=== PATIENT | male | born 1960 | race Caucasian/White ===

== ENCOUNTER 2019-05-28 20:16 | Emergency (ER) | payer MEDICARE, MEDICAID, SELFPAY ==
[2019-05-28] VITALS (9 sets, daily range): BP systolic 124–146; BP diastolic 60–81; PULSE 80–96; RESP 14–20; TEMP 37.3–37.4; O2SAT 99–100
--- NOTE | ~2019-05-28 | CT_ITS ---
EXAMINATION: CT UE LT w con EXAM DATE: 05/28/2019 22:04 INDICATION: Left upper extremity swelling, elevated white blood cell count, clinical concern for ne crotizing fasciitis. TECHNIQUE: Spiral CT left forearm and hand was performed following intravenous injection of 100 mL Om nipaque 350. Axial, coronal and sagittal images were reviewed. The dose-length product (DLP) for th is examination was 990.03 mGy-cm. The exposure was tailored according to patient size (auto mA expos ure control), and iterative reconstruction (ASIR) was used as additional dose reduction technique. T here is no prior study for comparison. FINDINGS: There is severe edema over the posterior aspect of the left forearm, wrist and hand, withou t an organized fluid collection to suggest focal abscess. There is no gas to suggest necrotizing fasc iitis. The arteries and veins enhance normally, no venous thrombosis. No radiopaque foreign bodies id entified. There are no bony erosions identified. IMPRESSION: Severe posterior soft tissue swelling without abscess, subcutaneous gas or venous thromb osis. Reviewed, dictated and finalized at location A. IMPRESSION: Severe posterior soft tissue swelling without abscess, subcutaneou s gas or venous thrombosis.
[2019-05-28] MEDS: MORPHINE SULFATE 4 MG/ML INJ IV PUSH ×2 (20:48→21:28)
[2019-05-28] MEDS: ONDANSETRON INJ 4 MG/2 ML VIAL IV PUSH (20:49)
[2019-05-28] MEDS: SODIUM CHLORIDE 0.9% IV 1,000 ML 500 ML IV CONT (20:55)
[2019-05-28 21:06] LABS: Basophils Absolute Auto 0.05 K/mm3 (0.00-0.10); Basophils Percent Auto 0.4 % (0.0-1.0); Eosinophils Absolute Auto 0.29 K/mm3 (0.02-0.50); Eosinophils Percent Auto 2.1 % (1.0-6.0); Hematocrit 41.9 % (40.0-54.0); Immature Granulocyte Absolute 0.06 K/mm3 (0.00-0.00); Immature Granulocyte Percent A 0.4 % (0.0-0.0); Lymphocytes Absolute Auto 0.23 K/mm3 (1.10-4.50); Lymphocytes Percent Auto 1.6 % (18.0-42.0); Mean Corpuscular HGB Conc 33.4 g/dL (32.0-36.0); Mean Corpuscular Hemoglobin 28.8 pg (27.0-31.0); Mean Corpuscular Volume 86.2 fL (78.0-102.0); Mean Platelet Volume 9.7 fl (8.7-11.0); Monocytes Absolute Auto 0.74 K/mm3 (0.10-0.90); Monocytes Percent Auto 5.3 % (2.0-11.0); Neutrophils Absolute Auto 12.6 K/mm3 (1.7-7.2); Neutrophils Percent Auto 90.2 % (50.0-70.0); Platelet Count Result 204 K/mm3 (150-420); Red Blood Count 4.86 M/mm3 (4.70-6.10); Red Cell Distribution Width 14.6 % (11.6-14.4)
[2019-05-28 21:20] LABS: INR 1.1; Prothrombin Time 11.7 Seconds (9.64-11.0)
[2019-05-28 21:27] LABS: Lactic Acid 5.1 mmol/L (0.4-2.0)
[2019-05-28 21:31] LABS: Alanine Aminotransferase 18 U/L (16-63); Albumin Level 3.4 g/dL (3.4-5.0); Alkaline Phosphatase 68 U/L (46-116); Aspartate Amino Transferase 25 U/L (15-37); Bilirubin,Total 0.7 mg/dL (0.00-1.00); Blood Urea Nitrogen 17 mg/dL (7-18); Calcium 8.1 mg/dL (8.5-10.1); Carbon Dioxide 23 mmol/L (21-32); Chloride 101 mmol/L (98-108); Estimated CRCL calculation 38 ml/min; Estimated Glomerular Filt Rate 37; Glucose 154 mg/dL (70-99); Osmolality Calculated 290 mOsm/kg (285-295); Sodium 138 mmol/L (136-145); Total Protein 6.7 g/dL (6.4-8.2)
[2019-05-28 21:32] LABS: CRP 12.7 mg/dL (0.0-0.9); Creatine Kinase 522 U/L (39-308)
--- NOTE | 2019-05-28 22:09 | ED.EXTPRO ---
HPI - Extremity Problem General Chief complaint: Nausea/Vomiting/Diarrhea Stated complaint: swollen arm,n Source: patient Mode of arrival: wheelchair Limitations: no limitations History of Present Illness HPI Narrative: 59 y.o. male with no medical problems developed a sore on his left forearm yesterday. Since then his arm and hand has become swollen with development of draining vesicles and intense, constant sharp pain. This is made worse with finger and wrist movement. Nothing makes it better. He's had chills, dry heaves and diarrhea all day today. Hx of MRSA infection over 4 years ago. Related Data Home Medications Medication Instructions Recorded Confirmed No Home Medications 05/28/19 05/28/19 Allergies Allergy/AdvReac Type Severity Reaction Status Date / Time No Known Allergies Allergy Verified 05/28/19 20:28 Review of Systems Constitutional: Constitutional: Reports no additional constitutional complaints Eyes: Eyes: Reports photophobia ENT: Denies dizziness Cardiovascular: Cardiovascular: Denies chest pain Respiratory: Respiratory: Denies dyspnea Gastrointestinal: Gastrointestinal: Reports no additional gastrointestinal complaints Musculoskeletal: Musculoskeletal: Reports no additional musculoskeletal complaints Comments: no rash or sores elsewhere Integumentary/Breasts: Skin/Breast: Reports system reviewed and no additional complaints, except as docu and Denies pruritus Neurologic: Reports headache(s) Comments: headache since yesterday Hematologic/Lymphatic: Hematologic/Lymphatic: Denies easy bruising PMFSH Surgical History Surgical History (Updated 05/29/19 @ 04:51 by Carlos Dennis MD) History of lumbar surgery Social History Social History (Updated 05/29/19 @ 04:52 by Carlos Dennis MD) Smoking packs per day: 2 Smoking cigarettes per day: 40.0 Years smoked: 43 Smoking pack-years: 86.00 Substance use: current Substance use type: marijuana Last use: daily use Living arrangements: with family Exam Narrative: Exam Narrative: Wretching with dry heaves as being wheeled into his room. Appears in a lot of pain. Const: General: alert Orientation/consciousness: patient oriented x3 Limitations: No altered mental status HENMT: Mouth: Yes Normal oral and palatal mucosa present Eyes: Conjunctivae: conjunctivae normal Neck: Neck: no lymphadenopathy Resp: Auscultation: clear to auscultation bilaterally Cardio: Rate: regular rate Rhythm: regular rhythm GI: GI Palp: Yes Soft to palpation Back/Spine/Pelvis: Thoracic/Lumbar Spine: Thoracic/lumbar spine scar(s) Skin: General skin exam: no rashes or lesions noted (other than on left arm), no crusts, no excoriation(s) and other (Left ant. forerm red with many 1 cm superficial ulcers with otero bases.) Extrem: Left upper extremity: normal capillary refill and edema (lower 1/4 of upper arm extending down to hand. Very tender); ROM limited (wrist flexion and extension limited to several degrees. Closes fist 1/2 way) Course Course Emergency Course: Rapid onset and progression, severe pain, leukocytosis, elevated CK, CRP, with severe soft tissue swelling in posterior arm concerning for necrotizing fasciitis. Pt given IV antiobiotics and 2 liters of saline followed by LR drip. Some pain control with 8 mg morphine + 1 mg dilaudid. Vital Signs Vital signs: Vital Signs Temperature 37.4 C 05/28/19 20:29 Pulse Rate 80 05/28/19 20:29 Respiratory Rate 20 05/28/19 20:29 Blood Pressure 135/81 05/28/19 20:29 Pulse Oximetry 99 05/28/19 20:29 Temperature 37.3 C 05/28/19 23:51 Pulse Rate 88 05/28/19 23:51 Respiratory Rate 14 05/28/19 23:51 Blood Pressure 143/78 H 05/28/19 23:51 Pulse Oximetry 100 05/28/19 23:51 Transfer Transfered to: Other ([facility]) Transportation: [facility] Accepting physician: Dr.. Bauer. Possible need for emergent fasciotomy MDM - Extremity (Nontra
--- NOTE | 2019-05-28 22:18 | PC.NURSE ---
RN CONTACTED ANNI AT [facility] FOR TRANSFER AT 2039
--- NOTE | 2019-05-28 22:29 | PC.NURSE ---
Dr. Ott contacted [facility] at this time. States the patient would need to be transferred to [facility] ED by ambulance. Awaiting [place] to contact with [facility] [facility] physician on the line.
[2019-05-28] MEDS: SODIUM CHLORIDE 0.9% IV 1,000 ML 999 ML IV CONT (22:43)
[2019-05-28] MEDS: HYDROMORPHONE HCL 2 MG/ML VIAL 1 MG IV PUSH (22:43)
[2019-05-28] MEDS: PROMETHAZINE HCL 25 MG/ML AMPUL IM (22:48)
--- NOTE | 2019-05-28 23:05 | PC.NURSE ---
TELEPHONE REPORT PROVIDED TO RAEANN HUTTON. PT TO BE TAK[place] [facility]. [facility] CONTACTED FOR TRANSFER.
[2019-05-28] MEDS: LACTATED RINGERS 1,000 ML 150 ML IV CONT (23:49)
== END 2019-05-28 23:53 | disposition short-term general hospital (02) ==
PROVIDERS: Emergency Provider Family Medicine; PCP Internal Medicine
DX: L03.114 Cellulitis of left upper limb (principal); M79.602 Pain in left arm
CPT/HCPCS: 36415; 73201; 80053; 82550; 83605; 85025; 85610; 85730; 86140; 87040; 87070; 87077; 87186; 87205; 96361; 96365; 96367; 96372; 96375; 99284; 99285; J1170; J2270; J2405; J2543; J2550; J3370; J7030; J7120; Q9965

== ENCOUNTER 2019-08-02 11:50 | Outpatient (CLI) | payer MEDICARE, MEDICAID, SELFPAY ==
--- NOTE | ~2019-08-02 | XR_ITS ---
EXAMINATION: XR foot RT min 3V DATE: 08/02/2019 12:21 INDICATION: Right foot injury. TECHNIQUE: 4 views of right foot were obtained. COMPARISON: None. FINDINGS: Bone alignment is normal. There is an oblique fracture of neck of second metatarsal. The di stal fracture fragment demonstrates one cortical width plantar percent displacement. There is mild os teoarthritis of first metatarsophalangeal joint. IMPRESSION: 1. Oblique fracture of neck of second metatarsal. Reviewed, dictated and finalized at location A.
--- NOTE | ~2019-08-02 | XR_ITS ---
EXAMINATION: XR ankle RT min 3V DATE: 08/02/2019 12:21 INDICATION: Right ankle injury. TECHNIQUE: 4 views of right ankle were obtained. COMPARISON: None. FINDINGS: Bone alignment is normal. No fracture. Joint spaces are well maintained. There is ankle sof t tissue swelling. IMPRESSION: 1. No fracture. Reviewed, dictated and finalized at location A. IMPRESSION: 1. No fracture.
== END 2019-08-02 11:51 | disposition home or self-care (01) ==
PROVIDERS: PCP Internal Medicine; Visit Provider Internal Medicine
DX: S92.321A Displaced fracture of second metatarsal bone, right foot, initial encounter for closed fracture (principal)
CPT/HCPCS: 73610; 73630

== ENCOUNTER 2019-08-12 09:58 | Outpatient (RCR) | payer MEDICARE, MEDICAID, SELFPAY ==
--- NOTE | 2019-08-12 11:17 | OTOPEVAL ---
Thank you for referring Hussein Livingston to [facility]. Please review, sign, date and return this plan of care GUERLINE. I agree with and certify that the following plan of care is medically necessary. Referring Physician Date Admitting Provider: Attending Provider: PHYSICIAN NOT ON STAFF Referring Provider: *OT Outpatient Evaluation Start: 08/12/19 10:13 Freq: Status: Active Protocol: Document 08/12/19 10:14 [facility] [place]Rec[place] 08/12/19 11:16 [id number] Therapy Assessment Status Assessment Status Assessment Status Evaluation Outpatient Past Medical History Musculoskeletal History Hx Back Pain Yes Hx Spinal Surgery Yes Evaluation Information Problem Diagnosis Decreased ROM & decreased strength Onset 05/28/19 Cause necrotizing fasciitis Subjective Information Patient reports that he was Query Text:As Reported By Patient/ working on a [employer] member other ranks and Family injured (punctured) his L forearm on 05/28/19. Patient reports his arm began swelling and he was transferred to [place] where he does not remember anything for 3 days. Patient was hospitalized for 10 days. Patient reports multiple surgeries for skin grafts and wound vac. Since patient has been home he reports he has been doing what he is supposed to be. 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 Patient reports that he is currently able to perform self care tasks independently. Quick DASH score: 54.5% Diagnostic Tests X-Rays For This Problem Yes Prior Level of Function Activity Level (Last 3 Months) Hand Dominance Right Activity of Daily Living Ability Independent Indoor/Home Mobility Independent Community Mobility Independent Stairs Ability Independent Functional Cognition (Planning, Shopping Independent , Taking Medications) Cooking Yes Cleaning Yes Laundry Yes Shopping
== END 2019-09-10 14:09 | disposition home or self-care (01) ==
LOC: CHSOT 09:58
PROVIDERS: PCP Internal Medicine
DX: M72.6 Necrotizing fasciitis (principal)
CPT/HCPCS: 97110; 97165

== ENCOUNTER 2019-09-02 13:56 | Outpatient (CLI) | payer MEDICARE, MEDICAID, SELFPAY ==
--- NOTE | ~2019-09-02 | XR_ITS ---
XR foot RT min 3V DATE: 09/02/2019 14:18 INDICATION: Fracture follow-up TECHNIQUE: 4 views COMPARISON: 08/02/2019 right foot FINDINGS: There is no significant change in position or alignment at the minimally anterolaterally di splaced oblique fracture of the neck of the second metatarsal bone. There is periosteal new bone form ation/callus at the fracture site compatible with healing IMPRESSION: Healing fracture of the neck of the second metatarsal bone Reviewed, dictated and finalized at location B.
== END 2019-09-02 13:57 | disposition home or self-care (01) ==
LOC: CHSIMG 13:57
PROVIDERS: PCP Internal Medicine; Visit Provider Internal Medicine
DX: S92.321D Displaced fracture of second metatarsal bone, right foot, subsequent encounter for fracture with routine healing (principal)
CPT/HCPCS: 73630

== ENCOUNTER 2019-10-18 14:09 | Inpatient (IN) | payer MEDICARE, MEDICAID, SELFPAY ==
[2019-10-18] VITALS (7 sets, daily range): BP systolic 133–178; BP diastolic 65–81; PULSE 65–81; RESP 16–20; TEMP 36.4–37.2; O2SAT 96–97; BMI 22.7
--- NOTE | ~2019-10-18 | XR_ITS ---
EXAMINATION: XR abdomen/kub 1V INDICATION: Left ureteral stone TECHNIQUE: Supine views of the abdomen were obtained on 2 radiographs. COMPARISON: CT, 10/18/2019 FINDINGS: A 5 mm calcification projects in the left pelvis, likely reflecting slight interval distal migration of the previously described left ureteral stone. The bowel gas pattern is normal. Surgical changes are noted in the upper abdomen. There is severe lumbar spondylosis. IMPRESSION: 1. 5 mm calcification of the left pelvis likely reflecting interval distal migration of the previousl y described left ureteral stone. Reviewed, dictated and finalized at location A. IMPRESSION: 1. 5 mm calcification of the left pelvis likely reflecting interval distal migr ation of the previously described left ureteral stone.
--- NOTE | ~2019-10-18 | CT_ITS ---
EXAMINATION: CT abdomen pelvis wo con DATE: 10/18/2019 14:59 INDICATION: Left flank pain. Nausea and vomiting. TECHNIQUE: Computed tomography (CT) of the abdomen and pelvis was performed without intravenous contr ast. Automated exposure control and iterative reconstruction technique were employed. The dose-length product was 454.78 mGy-cm. COMPARISON: None. FINDINGS: The visualized portions of the lung bases demonstrate emphysema and mild atelectasis. A lawrence cified left lung nodule is consistent with old granulomatous disease. No pleural effusion. The heart size is normal. There are coronary artery calcifications. No pericardial effusion. There are surgical clips around the stomach. There are cysts in the liver measuring up to 3.3 cm. The gallbladder, sple en, pancreas, and adrenal glands are normal. There is mild atrophy of right kidney. There is mild lef t hydronephrosis and proximal hydroureter. There is 3 mm stone in left ureter where it crosses the il iac vessels. There are no dilated loops of bowel. The appendix is normal. There is a supraumbilical v entral hernia containing fat. The prostate is mildly enlarged. There is a small left inguinal hernia containing fat. There are no pathologically enlarged lymph nodes. There is no free intraperitoneal fl uid. There is severe lumbar spondylosis. IMPRESSION: 1. 3 mm stone in mid left ureter with mild left hydronephrosis and proximal hydroureter. 2. Supraumbilical ventral hernia and left inguinal hernia containing fat. 3. Emphysema. Reviewed, dictated and finalized at location A. IMPRESSION: 1. 3 mm stone in mid left ureter with mild left hydronephrosis and proximal hyd roureter. 2. Supraumbilical ventral hernia and left inguinal hernia containing fat. 3. Emphysema.
--- NOTE | ~2019-10-18 | XR_ITS ---
EXAMINATION: XR abdomen/kub 1V INDICATION: Ureteral stone TECHNIQUE: Supine view of the abdomen is obtained. COMPARISON: 10/20/2019 FINDINGS: The previously described left ureteral calculus is not definitely identified. There are pel jovan phleboliths. A 4 mm calcification projects over the left kidney lower pole. Surgical changes are noted near the gastroesophageal junction. There are no dilated loops of bowel. There is severe lumbar spondylosis. IMPRESSION: 1. Previously described left ureteral calculus not definitely identified. 2. 4 mm calcification projecting over the left kidney lower pole, kidney stone versus bowel contents. Reviewed, dictated and finalized at location B.
--- NOTE | ~2019-10-18 | CT_ITS ---
EXAMINATION: CT brain wo con INDICATION: Headache and dizziness COMPARISON: 10/08/2013 TECHNIQUE: Standard unenhanced head CT. The dose-length product (DLP) was 529.67 mGy-cm. The mA was a djusted according to patient size. Iterative reconstruction technique was employed. FINDINGS: There is no intracranial hemorrhage, acute infarction, or abnormal mass lesion. There are o ld lacunar infarcts of the bilateral caudate nuclei. The ventricles are normal. There is no abnormal mass effect or midline shift. The bertrand-white matter differentiation is normal. The basal cisterns are patent. The orbits are normal. There is mild mucosal thickening of the paranasal sinuses. IMPRESSION: 1. Old lacunar infarcts of the bilateral caudate nuclei without acute intracranial abnormality. Reviewed, dictated and finalized at location B. IMPRESSION: 1. Old lacunar infarcts of the bilateral caudate nuclei without acute intracran ial abnormality.
--- NOTE | 2019-10-18 14:34 | ED.NAVMDI ---
HPI - Nausea/Vomiting/Diarrhea General Chief complaint: Nausea/Vomiting/Diarrhea Stated complaint: 59Yo male w/ 2 day h.o recurrent N/V associated w/ left flank pain that started at 11pm last night. Patient states he has been informed he has dumping syndrome in past. Unable to get relief from PO Zofran. Denies Fever Related Data Home Medications Medication Instructions Recorded Confirmed amlodipine 10 mg PO DAILY 10/18/19 10/18/19 diclofenac sodium 75 mg PO BID PRN 10/18/19 10/18/19 famotidine 40 mg PO DAILY 10/18/19 10/18/19 gabapentin 300 mg PO TID 10/18/19 10/18/19 hydrocodone-acetaminophen 5 - 325 tablet PO Q6-8H PRN 10/18/19 10/18/19 linezolid 600 mg PO BID 10/18/19 10/18/19 Allergies Allergy/AdvReac Type Severity Reaction Status Date / Time No Known Allergies Allergy Verified 10/18/19 14:24 Review of Systems Review of Systems: All systems reviewed & are unremarkable except as noted in HPI and below Constitutional: Constitutional: Reports as per HPI, Denies chills, Denies fatigue, Denies fever(s) and Reports weakness Eyes: Eyes: Reports no additional eye complaints ENT: Reports system reviewed and no additional complaints, except as documented Cardiovascular: Cardiovascular: Reports no additional cardiovascular complaints Respiratory: Respiratory: Reports no additional respiratory complaints Gastrointestinal: Gastrointestinal: Reports nausea and Reports vomiting Genitourinary: Comments: Left Flank pain Musculoskeletal: Musculoskeletal: Reports no additional musculoskeletal complaints Neurologic: Reports system reviewed and no additional complaints, except as documented, Reports as per HPI, Denies vertigo, Denies dizziness, Denies syncope, Denies focal weakness and Denies numbness Psychiatric: Psychiatric: Reports no additional psychiatric complaints Endocrine: Endocrine: Reports no additional endocrine complaints Hematologic/Lymphatic: Hematologic/Lymphatic: Reports no additional hematologic/lymphatic complaints Allergic/Immunologic: Allergic/Immunologic: Reports no additional allergic/immunologic complaints [facility] Past Medical History Medical History Cyclical vomiting syndrome Surgical History Surgical History History of lumbar surgery Social History Social History Smoking packs per day: 2 Smoking cigarettes per day: 40.0 Years smoked: 43 Smoking pack-years: 86.00 Substance use: current Substance use type: marijuana Last use: daily use Gender identity (if verbalized by the patient): Male Exam Const: General: no acute distress and alert Orientation/consciousness: patient oriented x3 Limitations: No altered mental status HENMT: Head: normal to inspection Neck: Neck: normal visual inspection Chest: Chest palpation & inspection: normal inspection of the chest Resp: Effort & Inspection: normal respiratory effort Auscultation: clear to auscultation bilaterally Cardio: Rate: regular rate Rhythm: regular rhythm GI: Inspection: non-distended GI Palp: Yes Soft to palpation, No Tenderness to palpation present (GI), No Guarding due to palpation present (GI) and No Rigid due to palpation Percussion: Yes normal to percussion Other: INtractable Nausea : General: Yes CVA tenderness on the left Back/Spine/Pelvis: Back: CVA tenderness Skin: General skin exam: normal color Neuro: General: patient oriented x3, moves all extremities, no meningeal signs, no focal motor deficits and CN's II-XI intact bilaterally Speech: normal speech Extrem: General: normal to inspection Psych: Mental Status: mental status grossly normal Affect: normal affect Attitude: cooperative Course Course Emergency Course: Reviewed w/u with patient. His N/V controlled after IV lorazepam and Zofran. Patient will be admitted fo
[2019-10-18] MEDS: diphenhydrAMINE HCl INJ 50 MG/ML VIAL IV PUSH (14:42)
[2019-10-18] MEDS: SODIUM CHLORIDE 0.9% IV 1,000 ML 999 ML IV CONT (14:42)
[2019-10-18] MEDS: ONDANSETRON INJ 4 MG/2 ML VIAL IV PUSH ×2 (14:44→21:00)
[2019-10-18 14:49] LABS: Basophils Absolute Auto 0.04 K/mm3 (0.00-0.10); Basophils Percent Auto 0.3 % (0.0-1.0); Hematocrit 44.2 % (40.0-54.0); Immature Granulocyte Absolute 0.06 K/mm3 (0.00-0.00); Immature Granulocyte Percent A 0.4 % (0.0-0.0); Lymphocytes Percent Auto 5.8 % (18.0-42.0); Mean Corpuscular HGB Conc 31.7 g/dL (32.0-36.0); Mean Corpuscular Hemoglobin 26.8 pg (27.0-31.0); Mean Corpuscular Volume 84.5 fL (78.0-102.0); Mean Platelet Volume 9.9 fl (8.7-11.0); Monocytes Absolute Auto 0.67 K/mm3 (0.10-0.90); Monocytes Percent Auto 4.3 % (2.0-11.0); Neutrophils Absolute Auto 13.8 K/mm3 (1.7-7.2); Neutrophils Percent Auto 89.2 % (50.0-70.0); Platelet Count Result 269 K/mm3 (150-420); Red Blood Count 5.23 M/mm3 (4.70-6.10); Red Cell Distribution Width 15.6 % (11.6-14.4); White Blood Count 15.5 K/mm3 (4.8-10.8)
[2019-10-18 15:07] LABS: Alanine Aminotransferase 20 U/L (16-63); Albumin Level 4.1 g/dL (3.4-5.0); Alkaline Phosphatase 102 U/L (46-116); Anion Gap 11 mmol/L (8-16); Aspartate Amino Transferase 18 U/L (15-37); Bilirubin,Total 0.5 mg/dL (0.00-1.00); Blood Urea Nitrogen 20 mg/dL (7-18); Carbon Dioxide 24 mmol/L (21-32); Chloride 105 mmol/L (98-108); Estimated CRCL calculation 42 ml/min; Estimated Glomerular Filt Rate 38; Glucose 175 mg/dL (70-99); Lipase 45 U/L (73-393); Osmolality Calculated 296 mOsm/kg (285-295); Potassium 4.3 mmol/L (3.5-5.1); Sodium 140 mmol/L (136-145); Total Protein 7.8 g/dL (6.4-8.2)
[2019-10-18] MEDS: SODIUM CHLORIDE 0.9% IV 100 ML 200 ML (16:10)
[2019-10-18] MEDS: ONDANSETRON INJ 4 MG/2 ML VIAL 25 MG IVPB (16:11)
[2019-10-18] MEDS: DEXTROSE 5%/0.9% SOD CHL 1,000 ML 250 ML IV CONT (16:13)
[2019-10-18] MEDS: TAMSULOSIN HCL 0.4 MG CAPSULE PO (16:26)
--- NOTE | 2019-10-18 16:55 | ADMGEN ---
This patient, Hussein Livingston, was admitted to 2nd Floor Room 209-1. Patient/family oriented to hospital policies and general routines including ID bracelet, bed and alarms, visiting hours, pain management, procedures, bathroom and other care routines, personal items, smoking policy, room service/diet, and visiting hours. Valuables list has been completed. Information on how to activate the Rapid Response Team has been discussed. Patient/Family are encouraged to report perceived risks to care and to ask questions if they do not understand what they are told or what they should do.
--- NOTE | 2019-10-18 18:25 | PC.NURSE ---
Patient sleeping quietly in bed. No distress noted. IV fluids cont. per order. This nurse spoke with about medication list. Changes noted, and made in chart.
--- NOTE | 2019-10-18 19:30 | PC.NURSE ---
pt sleeping, arousable to name, denies any pain or nausea at this time, iv fluids infusing per order
[2019-10-18] MEDS: ASCORBIC ACID 500 MG TABLET PO (20:18)
[2019-10-18] MEDS: HEPARIN SODIUM 5,000 UNITS/ML VIAL 5000 UNITS SUB-Q (20:18)
[2019-10-18] MEDS: SENNOSIDES 8.6 MG TABLET PO (20:18)
[2019-10-18] MEDS: DEXTROSE 5%/LACTATED RINGERS 1,000 ML 100 ML IV CONT (20:46)
--- NOTE | 2019-10-18 20:55 | PC.NURSE ---
pt began having nausea and dry heaves, medication given, voided dark urine, iv fluids running per order
[2019-10-18 21:16] LABS: Add Urine Microscopic? YES; Appearance Urine Clear (Clear); Bilirubin Urine 1+ (Negative); Blood Urine 3+ (Negative); Color Urine Yellow (Yellow); Glucose Urine UA Negative (Negative); Ketones Urine 1+ (Negative); Leukocyte Esterase Ur Negative LEU/UL (Negative); Nitrate Urine Negative (Negative); Protein Urine Trace (Negative); Specific Grav Ur 1.025 (1.010-1.020); Urobilinogen Urine 0.2 mg/dL (0.2-1.0); pH Urine 5.5 (5.0-8.0)
[2019-10-18 21:21] LABS: Bacteria Urine 2+ /hpf; RBC Urine 51-75 /hpf (0-2); Squamous Epithelial Cell Urine Few /hpf (Few)
--- NOTE | 2019-10-18 22:41 | PC.NURSE ---
pt is nauseated again and having dry heaves, charge account identification clerk calling doctor for orders
--- NOTE | 2019-10-18 23:38 | PC.NURSE ---
Dr Desai called and reported Pharmacist is not comfortable with the zofran 25mg order, discontinue that order, and just proceed with the ativan order, pt can also have benadryl to help him sleep and prevent further nausea
[2019-10-19] VITALS: BP 151/73; PULSE 73; RESP 20; TEMP 36.8; O2SAT 99
[2019-10-19] MEDS: diphenhydrAMINE HCl INJ 50 MG/ML VIAL 25 MG IV PUSH ×3 (00:10→17:25)
--- NOTE | 2019-10-19 00:11 | PC.NURSE ---
IV continues 100ml hr. Pt with dry heaves.
[2019-10-19] MEDS: ONDANSETRON INJ 4 MG/2 ML VIAL IV PUSH (03:21)
[2019-10-19] MEDS: MORPHINE SULFATE 2 MG/ML INJ IV PUSH ×2 (04:09→16:28)
--- NOTE | 2019-10-19 04:09 | PC.NURSE ---
IV continues 100ml hr. Pt Has frequwent dry heaves.
--- NOTE | 2019-10-19 04:48 | PC.NURSE ---
Call placed to Dr Desai, reported pt having dry heaves and medication given up to this point, orders received
--- NOTE | 2019-10-19 05:01 | PC.NURSE ---
IV continues 100ml hr D5LR. Pt continues with dry heaves. Remains NPO.
--- NOTE | 2019-10-19 06:00 | ECG_ITS ---
Measurements Intervals [place] Rate: 79 P: 63 W[place]: 132 QRS: 65 QRSD: 102 T: 74 QT: 377 QTc: 434 Interpretive Statements SINUS RHYTHM INCOMPLETE RIGHT BUNDLE BRANCH BLOCK BORDERLINE ECG Electronically Signed On 10-19-2019 15:19:20 CDT by Brian Penn D.O.
[2019-10-19 08:00] VITALS: BP 148/74; PULSE 80; RESP 20; TEMP 37.1; O2SAT 95
--- NOTE | 2019-10-19 08:16 | PM.IMHP ---
H&P: HPI History of Present Illness Date/Time: 10/19/19 08:16 Chief complaint: nause vomiting sweating chills Narrative: Hussein Livingston is a 59 year old male admitted for observation with a history of recurrent N/V associated with left flank pain that started at 11:00 p.m. last night. Patient states he has dumping syndrome in past. Unable to get relief from PO Zofran. Denies Fever Review of Systems Review of Systems: Narrative: Patient says that he has been having intractable vomiting ever since the mid . was in the room during exam she indicated that Compazine worked better than Zofran in the past. They denied keeping a food log to see if there is any correlation with eating drinking followed by the intractable vomiting. Patient admits that he was an alcoholic but he stopped drinking in the early . Patient denies vomiting any blood he does admit that there is a cramping like sensation in his epigastric area prior to onset of vomiting / retching. Patient does state that he does have some left flank pain that is not as bad as it was when he 1st came to the ER. Cardiovascular: Cardiovascular: Denies chest pain, Denies syncope, Denies lightheadedness and Denies dyspnea Respiratory: Respiratory: Denies chest congestion, Denies cough and Denies hemoptysis Gastrointestinal: Gastrointestinal: Reports as per HPI and Reports other (Hx of gastric ulcers with gastric resection. ) Genitourinary: Genitourinary: Denies hematuria, Denies dysuria and Reports flank pain Musculoskeletal: Musculoskeletal: Reports no additional musculoskeletal complaints PMFSH Past Medical History Medical History Cyclical vomiting syndrome Surgical History Surgical History History of lumbar surgery Social History Social History Smoking packs per day: 2 Smoking cigarettes per day: 40.0 Years smoked: 43 Smoking pack-years: 86.00 Smoking status: Current every day smoker Tobacco type: cigarettes Alcohol intake: current Substance use: current Substance use type: marijuana Last use: daily use Gender identity (if verbalized by the patient): Male Sexual Orientation (if Verbalized by the Patient): Straight or Heterosexual Spiritual care concerns: No Meds Home Medications and Allergies Home Medications Medication Instructions Recorded Confirmed Type amlodipine 10 mg PO DAILY 10/18/19 10/18/19 History diclofenac sodium 75 mg PO BID PRN 10/18/19 10/18/19 History famotidine 40 mg PO DAILY 10/18/19 10/18/19 History gabapentin 300 mg PO TID 10/18/19 10/18/19 History hydrocodone-acetaminophen 5 - 325 tablet PO Q6-8H PRN 10/18/19 10/18/19 History linezolid 600 mg PO BID 10/18/19 10/18/19 History Allergies Allergy/AdvReac Type Severity Reaction Status Date / Time No Known Allergies Allergy Verified 10/18/19 14:24 Vital Signs Vital Signs - 24 hr 10/18/19 14:10 10/18/19 15:00 10/18/19 15:02 Temperature 97.7 F Pulse Rate 65 71 69 Respiratory Rate 20 Blood Pressure 178/81 H 165/77 H 170/77 H Pulse Oximetry 96 10/18/19 15:06 10/18/19 15:30 10/18/19 16:33 Temperature 98.5 F 97.6 F Pulse Rate 81 70 78 Respiratory Rate 16 16 Blood Pressure 174/77 H 152/70 H 150/65 H Pulse Oximetry 97 96 10/18/19 16:55 10/19/19 00:00 Temperature 99 F 98.2 F Pulse Rate 74 73 Respiratory Rate 18 20 Blood Pressure 133/70 151/73 H Pulse Oximetry 96 99 Exam Const: General: cooperative, well developed, alert and awake; No comfortable (especially when wretching / dry heaving. ) Chest: Chest palpation & inspection: normal inspection of the chest Resp: Effort & Inspection: normal respiratory effort, able to speak in complete sentences, no cough, no respiratory distress and no retractions Auscultation: clear to auscultation bilaterally Card
[2019-10-19] MEDS: DEXTROSE 5%/LACTATED RINGERS 1,000 ML 100 ML IV CONT ×2 (08:37→18:14)
[2019-10-19] MEDS: FAMOTIDINE 20 MG/2 ML VIAL IV PUSH ×2 (09:48→20:39)
[2019-10-19] MEDS: HEPARIN SODIUM 5,000 UNITS/ML VIAL 5000 UNITS SUB-Q ×2 (09:49→20:39)
--- NOTE | 2019-10-19 10:00 | PC.NURSE ---
WARM BLANKETS PROVIDED PER REQUEST. IVF INFUSING ORDERED. CALL LIGHT IN REACH. AT BEDSIDE. OCCASINAL
[2019-10-19] MEDS: PROCHLORPERAZINE EDISYLATE 10 MG/2 ML VIAL IV PUSH ×2 (10:06→16:31)
[2019-10-19] MEDS: KETOROLAC 15 MG/ML VIAL (*BKC) IV PUSH ×2 (10:06→17:26)
--- NOTE | 2019-10-19 11:37 | PC.NURSE ---
AT BED SIDE. PT REQUESTING MOUTH SWABS FOR DRY MOUTH. PROVIDED. NO FURTHER RETCHING NOTED.
--- NOTE | 2019-10-19 13:34 | PC.NURSE ---
IV TO RIGHT WRIST NOT PATENT, LEAKING AND UNABLE TO FLUSH. SITE D/C'D ATTEMPTED X 2 TO REINSERT IV UNSUCCESSFUL. RN FROM ER CAME UP AND INSERTED A #20 RIGHT FOREARM. PT TOLERATED WELL. CONTINUES TO C/O NAUSEA. 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 WILL MONITOR.
[2019-10-19 15:28] VITALS: BP 161/90; PULSE 96; RESP 18; TEMP 37.2; O2SAT 98
--- NOTE | 2019-10-19 16:32 | PC.NURSE ---
left flank pain and dry heaves noted, morphine given and compazine given for c/o
--- NOTE | 2019-10-19 17:30 | PC.NURSE ---
No change in pain, still having dry heaves at times, feels awful, just wants to feel relief, benadryl IV and toradol given IV for comfort, fluids infusing through new saline lock to right lateral arm, site clear
--- NOTE | 2019-10-19 18:15 | PC.NURSE ---
Asleep, no evidence of pain at this time, fluids infusing, no further dry heaves at this time
[2019-10-19] MEDS: SENNOSIDES 8.6 MG TABLET PO (20:39)
[2019-10-19] MEDS: ASCORBIC ACID 500 MG TABLET PO (20:40)
[2019-10-20] VITALS: BP 160/91; PULSE 52; RESP 14; TEMP 37.4; O2SAT 96
[2019-10-20] MEDS: DEXTROSE 5%/LACTATED RINGERS 1,000 ML 100 ML IV CONT ×3 (03:43→23:40)
[2019-10-20 05:30] LABS: Hematocrit 36.6 % (40.0-54.0); Hemoglobin 11.6 g/dL (14.0-18.0); Mean Corpuscular HGB Conc 31.7 g/dL (32.0-36.0); Mean Corpuscular Hemoglobin 26.5 pg (27.0-31.0); Mean Corpuscular Volume 83.8 fL (78.0-102.0); Mean Platelet Volume 10.6 fl (8.7-11.0); Platelet Count Result 201 K/mm3 (150-420); Red Blood Count 4.37 M/mm3 (4.70-6.10); Red Cell Distribution Width 15.8 % (11.6-14.4); White Blood Count 10.9 K/mm3 (4.8-10.8)
[2019-10-20 05:41] LABS: Anion Gap 11 mmol/L (8-16); Blood Urea Nitrogen 18 mg/dL (7-18); Calcium 8.6 mg/dL (8.5-10.1); Carbon Dioxide 26 mmol/L (21-32); Chloride 109 mmol/L (98-108); Estimated CRCL calculation 52 ml/min; Estimated Glomerular Filt Rate 50; Glucose 151 mg/dL (70-99); Osmolality Calculated 306 mOsm/kg (285-295); Potassium 3.8 mmol/L (3.5-5.1); Sodium 146 mmol/L (136-145)
[2019-10-20 08:00] VITALS: BP 165/91; PULSE 55; RESP 18; TEMP 36; O2SAT 97
[2019-10-20] MEDS: HEPARIN SODIUM 5,000 UNITS/ML VIAL 5000 UNITS SUB-Q ×2 (09:33→20:58)
[2019-10-20] MEDS: chlorproMAZINE HCL 25 MG TABLET PO (09:33)
[2019-10-20] MEDS: TAMSULOSIN HCL 0.4 MG CAPSULE PO (09:33)
[2019-10-20] MEDS: FAMOTIDINE 20 MG/2 ML VIAL IV PUSH ×2 (09:34→20:59)
[2019-10-20] MEDS: diphenhydrAMINE HCl INJ 50 MG/ML VIAL 25 MG IV PUSH (09:35)
[2019-10-20] MEDS: GABAPENTIN 300 MG CAPSULE PO ×2 (09:36→16:52)
[2019-10-20] MEDS: LORATADINE 10 MG TABLET PO (09:36)
--- NOTE | 2019-10-20 12:04 | PM.IMPN ---
Progress Note: A&P Assessment and Plan (1) Cyclical vomiting syndrome: Code(s): R11.15 - Cyclical vomiting syndrome unrelated to migraine Status: Acute Assessment and Plan: Advancing diet to clear liquids Administered IV Benadryl and PO Chlorpromazine and this has helped with the retching to the point PO fluids can be started Compazine as Pt and stated this worked better in the past Femotidine Morphine (2) Dehydration: Code(s): E86.0 - Dehydration Status: Acute Assessment and Plan: D5LR 100 ml/hr will continue until PO fluids can be tolerated Starting PO clear liquid diet Monitor VS and I&Os (3) Left ureteral calculus: Code(s): N20.1 - Calculus of ureter Status: Acute Assessment and Plan: Toradol added for 3 doses, KUB report reads an impression that the stone has advanced lower Flomax Pt states Pain has improved more with Benadryl and PO Chlorpromazine Subjective Date/time seen: 10/20/19 12:04 Patient is complaining of abdominal pain due to retching quite a lot. He states the only thing he is producing just sputum. He did say that the Compazine was working a little better but not by much. After missing chlorpromazine and diphenhydramine patient was able to get some rest and is retching decreased quite a bit and he would really like to have something to drink. Review of Systems Constitutional: Constitutional: Denies headache(s) Cardiovascular: Cardiovascular: Reports no additional cardiovascular complaints, Denies chest pain, Denies chest pain at rest and Denies chest pain with activity Respiratory: Respiratory: Reports no additional respiratory complaints, Denies chest congestion and Denies hemoptysis Gastrointestinal: Gastrointestinal: Reports abdominal pain ( Related to constant retching) Exam Const: General: cooperative, awake and Physically active Nutritional Appearance: average body habitus Resp: Effort & Inspection: normal respiratory effort Auscultation: clear to auscultation bilaterally Cardio: Jugular venous distension: no JVD Rate: regular rate Rhythm: regular rhythm Heart sounds: S1 normal heart sound present and S2 normal heart sound present GI: Inspection: normal to inspection GI Palp: No abdominal tenderness and Yes Soft to palpation Auscultation: normal bowel sounds Neuro: General: oriented to person, oriented to place and oriented to time ( and events) Cranial nerves: Yes Normal hearing present Cognition (Neuro): normal cognition Speech: normal speech Objective Data Vital Signs Vital Signs: Vital Signs - 24 hr 10/19/19 15:28 10/20/19 00:00 10/20/19 08:00 Temperature 99 F 99.3 F 96.8 F L Pulse Rate 96 52 L 55 L Respiratory Rate 18 14 18 Blood Pressure 161/90 H 160/91 H 165/91 H Pulse Oximetry 98 96 97 Intake/Output Intake/Output: Intake & Output 10/17/19 10/18/19 10/19/19 10/20/19 23:59 23:59 23:59 23:59 Intake Total 1999 1999 998.333 Output Total 200 475 450 Balance 1800 1525 548.333 Meds/Results Medications: Active Medications Generic Name Dose Route Start Last Admin Trade Name Freq PRN Reason Stop Dose Admin Acetaminophen 650 mg 10/18/19 16:34 Tylenol Tablet PO Q4H PRN Mild Pain (1-3) or Fever Ascorbic Acid 500 mg 10/18/19 21:00 10/19/19 20:40 Vitamin C PO 500 mg HS DIANDRA Administration Chlorpromazine HCl 25 mg 10/20/19 09:19 10/20/19 09:33 Thorazine Po PO 25 mg Q6HR PRN Administration Vomiting give with benadryl Diphenhydramine HCl 25 mg 10/18/19 18:38 Benadryl Cap PO Q6H PRN Itching Diphenhydramine HCl 25 mg 10/18/19 23:57 10/20/19 09:35 Benadryl Inj IV PUSH 25 mg Q4H PRN Administration Itching Famotidine 20 mg 10/19/19 09:00 10/20/19 09:34 Pepcid Iv IV PUSH 20 mg Q12HR DIANDRA Administration Gabapentin 300 mg 10/19/19 09:00 10/20/19 09:36 Neurontin PO 300 mg BID DIANDRA Administ
[2019-10-20 16:00] VITALS: BP 185/110; PULSE 80; RESP 20; TEMP 37.4; O2SAT 97
[2019-10-20] MEDS: PROCHLORPERAZINE EDISYLATE 10 MG/2 ML VIAL IV PUSH ×2 (16:52→23:41)
[2019-10-20] MEDS: MORPHINE SULFATE 2 MG/ML INJ IV PUSH ×2 (18:05→23:41)
[2019-10-20] MEDS: ASCORBIC ACID 500 MG TABLET PO (20:59)
[2019-10-20] MEDS: KETOROLAC 15 MG/ML VIAL (*BKC) IV PUSH (20:59)
[2019-10-20] MEDS: diphenhydrAMINE HCl CAP 25 MG CAPSULE PO (20:59)
[2019-10-20] MEDS: SENNOSIDES 8.6 MG TABLET PO (20:59)
[2019-10-20 23:46] VITALS: BP 172/98; PULSE 61; RESP 20; TEMP 36.9; O2SAT 94
[2019-10-21] MEDS: diphenhydrAMINE HCl CAP 25 MG CAPSULE PO ×3 (02:58→20:11)
[2019-10-21] MEDS: chlorproMAZINE HCL 25 MG TABLET PO ×2 (02:58→12:17)
[2019-10-21] MEDS: MORPHINE SULFATE 2 MG/ML INJ IV PUSH (03:56)
[2019-10-21 07:38] VITALS: BP 171/96; PULSE 67; RESP 18; TEMP 37.2; O2SAT 98
[2019-10-21 08:29] LABS: Hemoglobin 11.8 g/dL (14.0-18.0); Mean Corpuscular HGB Conc 31.9 g/dL (32.0-36.0); Mean Corpuscular Hemoglobin 26.3 pg (27.0-31.0); Mean Corpuscular Volume 82.4 fL (78.0-102.0); Mean Platelet Volume 11.4 fl (8.7-11.0); Platelet Count Result 206 K/mm3 (150-420); Red Blood Count 4.49 M/mm3 (4.70-6.10); White Blood Count 10.2 K/mm3 (4.8-10.8)
[2019-10-21 08:43] LABS: Alanine Aminotransferase 40 U/L (16-63); Albumin Level 3.2 g/dL (3.4-5.0); Alkaline Phosphatase 73 U/L (46-116); Anion Gap 8 mmol/L (8-16); Aspartate Amino Transferase 52 U/L (15-37); Bilirubin,Total 0.6 mg/dL (0.00-1.00); Blood Urea Nitrogen 9 mg/dL (7-18); Calcium 8.1 mg/dL (8.5-10.1); Carbon Dioxide 29 mmol/L (21-32); Chloride 101 mmol/L (98-108); Estimated CRCL calculation 72 ml/min; Estimated Glomerular Filt Rate > 60; Glucose 119 mg/dL (70-99); Osmolality Calculated 285 mOsm/kg (285-295); Potassium 2.7 mmol/L (3.5-5.1); Sodium 138 mmol/L (136-145); Total Protein 5.9 g/dL (6.4-8.2)
[2019-10-21] MEDS: TAMSULOSIN HCL 0.4 MG CAPSULE PO (09:31)
[2019-10-21] MEDS: GABAPENTIN 300 MG CAPSULE PO ×2 (09:31→16:22)
[2019-10-21] MEDS: LORATADINE 10 MG TABLET PO (09:31)
[2019-10-21] MEDS: amLODIPine BESYLATE 5 MG TABLET 10 MG PO (09:32)
[2019-10-21] MEDS: FAMOTIDINE 20 MG/2 ML VIAL IV PUSH ×2 (09:32→20:11)
[2019-10-21] MEDS: ACETAMINOPHEN 325 MG TABLET 650 MG PO ×2 (09:32→16:21)
[2019-10-21] MEDS: HEPARIN SODIUM 5,000 UNITS/ML VIAL 5000 UNITS SUB-Q ×2 (09:32→20:11)
--- NOTE | 2019-10-21 11:53 | WPDPN ---
Progress Note: A&P Assessment and Plan (1) Cyclical vomiting syndrome: Code(s): R11.15 - Cyclical vomiting syndrome unrelated to migraine Status: Acute Assessment and Plan: Improving Patient able to tolerate clear liquid has advance to bland diet Continue Compazine Patient has not needed any pain medication Continue Pepcid (2) Left ureteral calculus: Code(s): N20.1 - Calculus of ureter Status: Acute Assessment and Plan: Improving, stone appears to be passing Stone has migrated from the left ureteral to the left pelvis (3) Dehydration: Code(s): E86.0 - Dehydration Status: Acute Assessment and Plan: Resolved Secondary to nausea and vomiting IV therapy discontinue patient able to tolerate clear liquid diet (4) H/O resection of stomach: Code(s): Z90.3 - Acquired absence of stomach [part of] Status: Acute Assessment and Plan: Secondary to ulcers Stable (5) 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 HEAD: normocephalic, atraumatic. EYES: PERRL. Sclera clear/white. Vision is grossly intact. EARS: External ears normal, auditory canals clear and without drainage, TMs normal without perforation. Hearing grossly intact. NOSE: External nose normal with no obvious nasal discharge, nares without redness, no rhinorrhea. THROAT: Mucous membranes moist, posterior pharynx clear. NECK: Neck supple, non-tender without lymphadenopathy, masses or thyromegaly. CARDIOVASCULAR: Regular rate and rhythm without murmurs, gallops, or rubs. RESPIRATORY: Clear to auscultation. Breath sounds equal bilaterally. No wheezes, rales, or rhonchi. GASTROINTESTINAL: Abdomen soft, non-tender, nondistended. Bowel sounds are active. No hepato-splenomegaly, or palpable masses. No guarding. SKIN: warm, intact with no suspicious lesions or rash, good texture and turgor. NEURO: awake, alert, and oriented to person, place and time. There were no obvious focal neurologic abnormalities. Steady gait EXTREMITIES: Normal range of motion. No edema. No calf tenderness. Negative Homans sign bilaterally. BACK: Nontender without deformity or crepitance. No flank tenderness. Fawad Coma Scale Eye Opening: Spontaneous 4 Fawad Coma Scale Motor: Obeys Commands 6 Fawad Coma Scale Verbal: Oriented 5 Objective Data Vital Signs Vital Signs: Vital Signs - 24 hr 10/20/19 16:00 10/20/19 23:46 10/21/19 07:38 Temperature 99.4 F 98.4 F 99 F Pulse Rate 80 61 67 Respiratory Rate 20 20 18 Blood Pressure 185/110 H 172/98 H 171/96 H Pulse Oximetry 97 94 98 Intake/Output Intake/Output: Intake & Output 10/18/19 10/19/19 10/20/19 10/21/19 23:59 23:59 23:59 23:59 Intake Total 1999 1999 3278.333 1480 Output Total 518 552 5346 1800 Balance 1800 1525 1428.333 -320 Meds/Results Medications: Active Medications Generic Name Dose Route Start Last Admin Trade Name Freq PRN Reason Stop Dose Admin Acetaminophen 650 mg 10/18/19 16:34 10/21/19 09:32 Tylenol Tablet PO 650 mg Q4H PRN Administration Mild Pain (1-3) or Fever Amlodipine Besylate 10 mg 10/21/19 09:00 10/21/19 09:32 Norvasc PO 10 mg QAM DIANDRA Administration Ascorbic Acid 500 mg 10/18/19 21:00 10/20/19 20:59 Vitamin C PO 500 mg HS DIANDRA Administration Chlorpromazine HCl 25 mg 10/20/19 09:19 10/21/19 02:58 Thorazine Po PO 25 mg Q6HR PRN Administration Vomiting give with benadryl Diphenhydramine HCl 25 mg 10/18/19 18:38 10/21/19 02:58 Benadryl Cap PO 25 mg Q6H PRN Administration Itching
[2019-10-21] MEDS: KETOROLAC 15 MG/ML VIAL (*BKC) IV PUSH (12:19)
[2019-10-21] MEDS: KCL 20 MEQ/SW 100 ML 100 ML 50 MEQ IVPB ×2 (14:19→16:22)
[2019-10-21] MEDS: SODIUM CHLORIDE 0.9% IV 500 ML 250 ML IV CONT (14:19)
[2019-10-21 16:20] VITALS: BP 158/90; PULSE 75; RESP 18; TEMP 36.9; O2SAT 97
[2019-10-21] MEDS: SENNOSIDES 8.6 MG TABLET PO (20:10)
[2019-10-21] MEDS: ASCORBIC ACID 500 MG TABLET PO (20:10)
[2019-10-21] MEDS: traZODone HCL 50 MG TABLET PO (20:12)
--- NOTE | 2019-10-21 20:30 | PCNEURO ---
Patient SO reports drinks [employer] continually at home. Patient reports headache. Gave trazadone and benedryl to promote supply.
[2019-10-22] VITALS: PULSE 71; RESP 18; TEMP 37.2; O2SAT 95
[2019-10-22 01:04] VITALS: BP 163/90
--- NOTE | 2019-10-22 02:00 | PC.NURSE ---
Patient resting. Pain 0 on FLACC
--- NOTE | 2019-10-22 04:00 | PC.NURSE ---
Patient is resting. pain 0 on FLACC.
[2019-10-22] MEDS: diphenhydrAMINE HCl CAP 25 MG CAPSULE PO (05:14)
[2019-10-22] MEDS: ACETAMINOPHEN 325 MG TABLET 650 MG PO (05:14)
[2019-10-22] MEDS: chlorproMAZINE HCL 25 MG TABLET PO (05:14)
--- NOTE | 2019-10-22 05:17 | PC.NURSE ---
Patient c/o headache. PRN tylenol given. Medication given for c/o nausea
[2019-10-22 05:41] LABS: Hematocrit 44.2 % (40.0-54.0); Hemoglobin 14.5 g/dL (14.0-18.0); Mean Corpuscular HGB Conc 32.8 g/dL (32.0-36.0); Mean Corpuscular Hemoglobin 26.2 pg (27.0-31.0); Mean Corpuscular Volume 79.9 fL (78.0-102.0); Mean Platelet Volume 10.9 fl (8.7-11.0); Platelet Count Result 251 K/mm3 (150-420); Red Blood Count 5.53 M/mm3 (4.70-6.10); Red Cell Distribution Width 14.3 % (11.6-14.4); White Blood Count 9.7 K/mm3 (4.8-10.8)
[2019-10-22 05:56] LABS: Alanine Aminotransferase 168 U/L (16-63); Albumin Level 3.7 g/dL (3.4-5.0); Alkaline Phosphatase 99 U/L (46-116); Anion Gap 10 mmol/L (8-16); Aspartate Amino Transferase 127 U/L (15-37); Bilirubin,Total 0.9 mg/dL (0.00-1.00); Blood Urea Nitrogen 9 mg/dL (7-18); Calcium 8.5 mg/dL (8.5-10.1); Carbon Dioxide 29 mmol/L (21-32); Chloride 95 mmol/L (98-108); Estimated CRCL calculation 71 ml/min; Estimated Glomerular Filt Rate > 60; Glucose 120 mg/dL (70-99); Osmolality Calculated 277 mOsm/kg (285-295); Potassium 2.6 mmol/L (3.5-5.1); Sodium 134 mmol/L (136-145); Total Protein 6.9 g/dL (6.4-8.2)
[2019-10-22 07:25] VITALS: BP 195/112; PULSE 70; RESP 18; TEMP 37.2; O2SAT 98
[2019-10-22] MEDS: amLODIPine BESYLATE 5 MG TABLET 10 MG PO (08:01)
[2019-10-22] MEDS: FAMOTIDINE 20 MG/2 ML VIAL IV PUSH ×2 (08:02→21:31)
[2019-10-22] MEDS: hydrALAZINE 5 MG TABLET PO (08:02)
[2019-10-22] MEDS: LORATADINE 10 MG TABLET PO (08:02)
[2019-10-22] MEDS: KCL 20 MEQ/SW 100 ML 100 ML 50 MEQ IVPB ×5 (08:02→20:05)
[2019-10-22] MEDS: GABAPENTIN 300 MG CAPSULE PO ×2 (08:02→17:16)
[2019-10-22] MEDS: TAMSULOSIN HCL 0.4 MG CAPSULE PO (08:02)
[2019-10-22] MEDS: HEPARIN SODIUM 5,000 UNITS/ML VIAL 5000 UNITS SUB-Q ×2 (08:02→21:30)
[2019-10-22] MEDS: SODIUM CHLORIDE 0.9% IV 1,000 ML 150 ML IV CONT (08:03)
[2019-10-22] MEDS: POTASSIUM CHLORIDE 20 MEQ PACKET (FOR LIQUID) 40 MEQ PO (08:10)
[2019-10-22 11:00] VITALS: BP 173/100; PULSE 82; RESP 18; O2SAT 98
--- NOTE | 2019-10-22 11:40 | P.PN_ITS ---
Progress Note: A&P Assessment and Plan (1) Cyclical vomiting syndrome: Code(s): R11.15 - Cyclical vomiting syndrome unrelated to migraine Status: Acute Assessment and Plan: * Unchanged * Patient able to tolerate clear liquid . Patient diet advanced unable to tolerate solids * Continue Compazine added Reglan to his regimen * Continue Pepcid * If patient condition does not improve he will be transferred to [facility] for GI work-up (2) Left ureteral calculus: Code(s): N20.1 - Calculus of ureter Status: Acute Assessment and Plan: * Improving, stone appears to be passing * Stone has migrated from the left ureteral to the left pelvis * Repeat x-ray today unchanged * Strain urine * Liver function tests worsening (3) Dehydration: Code(s): E86.0 - Dehydration Status: Acute Assessment and Plan: * Resolved * Secondary to nausea and vomiting * IV therapy discontinue patient able to tolerate clear liquid diet * Repeat x-ray today unchanged * Strain urine (4) H/O resection of stomach: Code(s): Z90.3 - Acquired absence of stomach [part of] Status: Acute Assessment and Plan: * Secondary to ulcers * Requested medical records from [facility] (5) 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 * We will repeat potassium after noon * Will continue supplement (8) Migraine headache: Code(s): G43.909 - Migraine, unspecified, not intractable, without status migrainosus Status: Acute Assessment and Plan: * Patient has a history of migraine headaches * will bring Excedrin migraine from home * Patient also will get Reglan with Tylenol to improve migraine headache * CT of the head. (9) Complicated wound infection: Code(s): T14.8XXA - Other injury of unspecified body region, initial encounter; L08.9 - Local infection of the skin and subcutaneous tissue, unspecified Status: Acute Assessment and Plan: * According to patient after receiving a puncture wound to his left arm he developed a strep infection. He recently have had a skin graft to the left arm where the wound infection was located and has completed his dose of linezolid * Requested medical records from [facility] Review of Systems Review of Systems: All systems reviewed & are unremarkable except as noted in HPI and below (10 point system review) Exam Narrative: Exam Narrative: GENERAL: This is a well-nourished, well-developed patient, in no apparent distress. HEAD: normocephalic, atraumatic. EYES: PERRL. Sclera clear/white. Vision is grossly intact. EARS: External ears normal, auditory canals clear and without drainage, TMs normal without perforation. Hearing grossly intact. NOSE: External nose normal with no obvious nasal discharge, nares without redness, no rhinorrhea. THROAT: Mucous membranes moist, posterior pharynx clear. NECK: Neck supple, non-tender without lymphadenopathy, masses or thyromegaly. CARDIOVASCULAR: Regular rate and r
--- NOTE | 2019-10-22 11:40 | WPDPN ---
Progress Note: A&P Assessment and Plan (1) Cyclical vomiting syndrome: Code(s): R11.15 - Cyclical vomiting syndrome unrelated to migraine Status: Acute Assessment and Plan: Unchanged Patient able to tolerate clear liquid . Patient diet advanced unable to tolerate solids Continue Compazine added Reglan to his regimen Continue Pepcid If patient condition does not improve he will be transferred to [facility] for GI work-up (2) Left ureteral calculus: Code(s): N20.1 - Calculus of ureter Status: Acute Assessment and Plan: Improving, stone appears to be passing Stone has migrated from the left ureteral to the left pelvis Repeat x-ray today unchanged Strain urine Liver function tests worsening (3) Dehydration: Code(s): E86.0 - Dehydration Status: Acute Assessment and Plan: Resolved Secondary to nausea and vomiting IV therapy discontinue patient able to tolerate clear liquid diet Repeat x-ray today unchanged Strain urine (4) H/O resection of stomach: Code(s): Z90.3 - Acquired absence of stomach [part of] Status: Acute Assessment and Plan: Secondary to ulcers Requested medical records from [facility] (5) 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 We will repeat potassium after noon Will continue supplement (8) Migraine headache: Code(s): G43.909 - Migraine, unspecified, not intractable, without status migrainosus Status: Acute Assessment and Plan: Patient has a history of migraine headaches will bring Excedrin migraine from home Patient also will get Reglan with Tylenol to improve migraine headache CT of the head. (9) Complicated wound infection: Code(s): T14.8XXA - Other injury of unspecified body region, initial encounter; L08.9 - Local infection of the skin and subcutaneous tissue, unspecified Status: Acute Assessment and Plan: According to patient after receiving a puncture wound to his left arm he developed a strep infection. He recently have had a skin graft to the left arm where the wound infection was located and has completed his dose of linezolid Requested medical records from [facility] Review of Systems Review of Systems: All systems reviewed & are unremarkable except as noted in HPI and below (10 point system review) Exam Narrative: Exam Narrative: GENERAL: This is a well-nourished, well-developed patient, in no apparent distress. HEAD: normocephalic, atraumatic. EYES: PERRL. Sclera clear/white. Vision is grossly intact. EARS: External ears normal, auditory canals clear and without drainage, TMs normal without perforation. Hearing grossly intact. NOSE: External nose normal with no obvious nasal discharge, nares without redness, no rhinorrhea. THROAT: Mucous membranes moist, posterior pharynx clear. NECK: Neck supple, non-tender without lymphadenopathy, masses or thyromegaly. CARDIOVASCULAR: Regular rate and rhythm without murmurs, gallops, or rubs. RESPIRATORY: Clear to auscultation. Breath sounds equal bilaterally. No wheezes, rales, or rhonchi. GASTROINTESTINAL: Epigastric tenderness SKIN: warm, intact with no suspicious lesions or rash, good texture and turgor. Skin graft to his left thigh and left upper arm NEURO: awake, alert, and oriented to person, place and time. There were no obvious focal neurologic abnormalities. Steady gait EXTREMITIES: Normal range
[2019-10-22 12:04] LABS: Potassium 2.8 mmol/L (3.5-5.1)
[2019-10-22] MEDS: METOCLOPRAMIDE HCL INJ 10 MG/2 ML VIAL 5 MG IV PUSH ×2 (12:34→17:15)
[2019-10-22] MEDS: BISMUTH SUBSALICYLATE 262 MG CHEWABLE TABLET 524 MG PO (12:36)
[2019-10-22] MEDS: hydrALAZINE HCL 20 MG/ML VIAL 5 MG IV PUSH (12:41)
--- NOTE | 2019-10-22 13:24 | PHAR ---
10/22/19. VERIFIED PT.'S HOME MEDICATION EXCEDRIN MIGRAINE. TLS
--- NOTE | 2019-10-22 14:45 | PC.NURSE ---
Patient reports discomfort at IV site. IV site discontinued. New site obtained on top of right forearm. Patient tolerated well.
[2019-10-22 16:00] VITALS: BP 164/111; PULSE 84; PULSE 85; RESP 18; TEMP 37.4; O2SAT 97
[2019-10-22] MEDS: ACETAMINOPHEN 325 MG TABLET PO (17:15)
[2019-10-22] MEDS: hydrALAZINE 10 MG TABLET 5 MG PO (17:16)
[2019-10-22 18:44] LABS: Anion Gap 7 mmol/L (8-16); Blood Urea Nitrogen 8 mg/dL (7-18); Calcium 8.4 mg/dL (8.5-10.1); Carbon Dioxide 30 mmol/L (21-32); Chloride 95 mmol/L (98-108); Estimated CRCL calculation 75 ml/min; Estimated Glomerular Filt Rate > 60; Glucose 126 mg/dL (70-99); Osmolality Calculated 274 mOsm/kg (285-295); Sodium 132 mmol/L (136-145)
[2019-10-22 20:00] VITALS: PULSE 104
[2019-10-22] MEDS: ASCORBIC ACID 500 MG TABLET PO (21:31)
[2019-10-22] MEDS: SENNOSIDES 8.6 MG TABLET PO (21:32)
[2019-10-22] MEDS: SODIUM CHLORIDE 0.9% IV 250 ML 100 ML IV CONT (22:05)
[2019-10-22] MEDS: traZODone HCL 50 MG TABLET 100 MG PO (22:09)
--- NOTE | 2019-10-22 23:36 | PC.NURSE ---
New IV site started to the right forearm with a #22 gauge catheter. IV fluid infusing as ordered.
[2019-10-23] VITALS: BP 167/99; PULSE 78; RESP 20; TEMP 37.4; O2SAT 96
[2019-10-23] MEDS: METOCLOPRAMIDE HCL INJ 10 MG/2 ML VIAL 5 MG IV PUSH ×2 (00:22→06:19)
[2019-10-23] MEDS: KCL 20 MEQ/SW 100 ML 100 ML 50 MEQ IVPB (00:23)
[2019-10-23] MEDS: SODIUM CHLORIDE 0.9% IV 250 ML 100 ML IV CONT (00:24)
[2019-10-23] MEDS: ACETAMINOPHEN 325 MG TABLET PO ×2 (00:36→06:18)
[2019-10-23 00:41] LABS: Occult Blood Negative (Negative)
[2019-10-23 04:00] VITALS: PULSE 72
--- NOTE | 2019-10-23 04:56 | PM.EVENT ---
Event Note Event Note Event Note: For 10/22/19: I have examined the patient and reviewed the chart. I discussed the patient's care with Lobito ROBBINS and agree with her assessment and plan. If the patient's clinical condition does not significantly improve, he may need more specialized care such as endoscopy and/or GI consult.
[2019-10-23 05:40] LABS: Hematocrit 43.4 % (40.0-54.0); Hemoglobin 14.4 g/dL (14.0-18.0); Mean Corpuscular HGB Conc 33.2 g/dL (32.0-36.0); Mean Corpuscular Hemoglobin 26.9 pg (27.0-31.0); Mean Platelet Volume 10.7 fl (8.7-11.0); Platelet Count Result 255 K/mm3 (150-420); Red Blood Count 5.36 M/mm3 (4.70-6.10); Red Cell Distribution Width 14.3 % (11.6-14.4); White Blood Count 9.6 K/mm3 (4.8-10.8)
[2019-10-23 06:05] LABS: Alanine Aminotransferase 101 U/L (16-63); Albumin Level 3.4 g/dL (3.4-5.0); Alkaline Phosphatase 90 U/L (46-116); Anion Gap 9 mmol/L (8-16); Aspartate Amino Transferase 59 U/L (15-37); Bilirubin,Total 0.8 mg/dL (0.00-1.00); Blood Urea Nitrogen 10 mg/dL (7-18); Calcium 8.5 mg/dL (8.5-10.1); Carbon Dioxide 27 mmol/L (21-32); Chloride 96 mmol/L (98-108); Estimated CRCL calculation 69 ml/min; Estimated Glomerular Filt Rate > 60; Glucose 137 mg/dL (70-99); Osmolality Calculated 275 mOsm/kg (285-295); Potassium 2.8 mmol/L (3.5-5.1); Sodium 132 mmol/L (136-145); Total Protein 6.4 g/dL (6.4-8.2)
--- NOTE | 2019-10-23 06:38 | PC.NURSE ---
Dr. Ash notified of pt's potassium value; No new orders at this time.
[2019-10-23 07:50] VITALS: BP 154/87; PULSE 74; RESP 20; TEMP 37.7; O2SAT 97
[2019-10-23] MEDS: amLODIPine BESYLATE 5 MG TABLET 10 MG PO (08:45)
[2019-10-23] MEDS: HEPARIN SODIUM 5,000 UNITS/ML VIAL 5000 UNITS SUB-Q (08:45)
[2019-10-23] MEDS: FAMOTIDINE 20 MG/2 ML VIAL IV PUSH (08:45)
[2019-10-23] MEDS: GABAPENTIN 300 MG CAPSULE PO (08:46)
[2019-10-23] MEDS: lisinopriL 5 MG TABLET 2.5 MG PO (08:46)
[2019-10-23] MEDS: TAMSULOSIN HCL 0.4 MG CAPSULE PO (08:46)
[2019-10-23] MEDS: LORATADINE 10 MG TABLET PO (08:46)
[2019-10-23] MEDS: POTASSIUM CHLORIDE 20 MEQ PACKET (FOR LIQUID) 40 MEQ PO (08:47)
--- NOTE | 2019-10-23 09:30 | PC.NURSE ---
KAILEY SPECIAL CERTIFICATE DICTATOR VISITS PATIENT.
--- NOTE | 2019-10-23 09:40 | PC.NURSE ---
PT SIGNED AMA PAPERS AND LEFT AFTER LACE WEAVER AND NURSES EXPLAINED THE RISKS OF LEAVING AT THIS TIME. PT LEFT WITH HIS AMB, A&OX3, WITHOUT COMPLAINTS.
--- NOTE | 2019-10-23 10:40 | PC.NURSE ---
ONE TABLET EXCEDRIN MIGRAINE GIVEN TO PATIENT PER REQUEST FOR A HEADACHE, RATES A 3 1/2 ON 1-10 SCALE. HAS NO OTHER COMPLAINTS.
--- NOTE | 2019-10-23 10:41 | PC.NURSE ---
PREVIOUS NOTE TIME SHOULD BE 0900
--- NOTE | 2019-10-24 14:30 | PM.EVENT ---
Event Note Event Note Event Note: Patient k 2's, patient refuse therapy and requested to leave. Informed patient he would have to leave AMA. Patient agree and left AMA. on 10/24/2019
== END 2019-10-23 09:40 | disposition left against medical advice (07) | DRG 394 ==
LOC: CHSED 16:34 → CHS2ND 16:47
PROVIDERS: Emergency Medicine; Nurse Practitioner; Nurse Practitioner Family; Admitting Provider Family Medicine; Emergency Provider Family Medicine; PCP Internal Medicine; Visit Provider Family Medicine
DX: R11.15 Cyclical vomiting syndrome unrelated to migraine (principal); N13.2 Hydronephrosis with renal and ureteral calculous obstruction; E86.0 Dehydration; K91.1 Postgastric surgery syndromes; E87.6 Hypokalemia; G43.909 Migraine, unspecified, not intractable, without status migrainosus; F17.210 Nicotine dependence, cigarettes, uncomplicated; F12.90 Cannabis use, unspecified, uncomplicated
CPT/HCPCS: 36415; 70450; 74018; 74176; 80048; 80053; 81001; 82272; 83690; 84132; 85025; 85027; 93005; 96361; 96374; 96375; 96376; 99283; 99285; A9270; G0378; J0360; J0780; J1200; J1644; J1885; J2060; J2270; J2405; J2765; J3480; J7030; J7040; J7042; J7050; J7121

== ENCOUNTER 2019-10-25 08:19 | Outpatient (CLI) | payer MEDICARE, SELFPAY ==
[2019-10-25 09:37] LABS: Potassium 3.5 mmol/L (3.5-5.1)
--- NOTE | 2019-10-25 13:30 | P.DS_ITS ---
DS: Admitting Diagnosis Admitting Diagnosis Admitting Diagnosis: e87.6 DS: Discharge Diagnosis Discharge Diagnosis (1) Cyclical vomiting syndrome: Code(s): R11.15 - Cyclical vomiting syndrome unrelated to migraine Status: Acute Assessment and Plan: * Patient discharged AMA * Resolved (2) Left ureteral calculus: Code(s): N20.1 - Calculus of ureter Status: Acute Assessment and Plan: * Patient left AMA (3) Dehydration: Code(s): E86.0 - Dehydration Status: Acute Assessment and Plan: * Patient left AMA (4) H/O resection of stomach: Code(s): Z90.3 - Acquired absence of stomach [part of] Status: Acute Assessment and Plan: * Patient left AMA (5) Liver function test abnormality: Code(s): R94.5 - Abnormal results of liver function studies Status: Acute Assessment and Plan: * Patient left AMA (6) Migraine headache: Code(s): G43.909 - Migraine, unspecified, not intractable, without status migrainosus Status: Acute Assessment and Plan: * Patient left AMA (7) Hypokalemia: Code(s): E87.6 - Hypokalemia Status: Acute Assessment and Plan: * Patient remain hypokalemia on discharge , informed patient that we will not be able to discharge him due to low potassium. Did prescribe the patient a couple days of potassium and informed him that he needed to follow-up with his primary care physician * Patient refused to stay inpatient for potassium supplements. Risk due to low potassium explained to patient. DS: Summary Hospital Course Reason for hospitalization: Nausea vomiting and abdominal pain Hospital Course: This is a discharge note from OctoberJanuary 2020 .this day patient refused to remain in the hospital. Patient potassium level was decreasing explained to the patient all the risk of discharging before treatment is complete. Patient refused to stay as inpatient and agreed to sign out AMA. Prescribed a couple of days of potassium and informed the patient that he will need to follow-up with his primary care physician for review potassium. Time Spent with Patient Time attestation: Total time spent providing and/or coordinating discharge services:30 Exam Narrative: Exam Narrative: Not completed patient left AMA Discharge Plan Discharge Patient Disposition: Home, Self-Care Discharge Instructions: Patient left AMA Patient Instructions: Antibiotic Form Discharge Medications: No Action hydrocodone-acetaminophen 5-325 mg tablet 5 - 325 tablet PO Q6-8H PRN (Reason: Pain) RF: 0 famotidine 40 mg tablet 40 mg PO DAILY RF: 0 linezolid 600 mg tablet 600 mg PO BID RF: 0 amlodipine 10 mg tablet 10 mg PO DAILY RF: 0 gabapentin 300 mg capsule 300 mg PO TID RF: 0 diclofenac sodium 75 mg tablet,delayed release (DR/EC) 75 mg PO BID PRN (Reason: Pain) RF: 0
== END 2019-10-25 08:20 | disposition home or self-care (01) ==
LOC: CHSLAB 08:22
PROVIDERS: PCP Internal Medicine; Visit Provider Nurse Practitioner
DX: E87.6 Hypokalemia (principal)
CPT/HCPCS: 36415; 84132

== ENCOUNTER 2020-05-09 11:20 | Emergency (ER) | payer SELFPAY ==
--- NOTE | ~2020-05-09 | XR_ITS ---
EXAMINATION: XR shoulder RT min 2V INDICATION: Right shoulder pain TECHNIQUE: Four views of the right shoulder are submitted. COMPARISON: 04/29/2010 FINDINGS: Normal alignment. No fracture. There is moderate to severe acromioclavicular joint osteoart hritis with mild interval worsening. Mild glenohumeral joint osteoarthritis is present. Screws are ag ain seen in the proximal shaft of the humerus. Soft tissues are unremarkable. IMPRESSION: 1. No acute osseous abnormality. Reviewed, dictated and finalized at location A.
--- NOTE | ~2020-05-09 | XR_ITS ---
EXAMINATION: XR lumbar spine 2-3V DATE: 05/09/2020 12:40 INDICATION: Low back pain TECHNIQUE: Anteroposterior and lateral views of the lumbar spine, and cone-down lateral view of the l umbosacral junction were obtained. COMPARISON: 03/04/2008 FINDINGS: There is no fracture. There is severe loss of intervertebral disc space height at L2-3 and L3-4 and moderate loss of disc space height at L4-5 and L5-S1. The vertebral body heights and alignme nt are maintained. There is moderate facet osteoarthritis of the lower lumbar spine. Surgical changes are noted in the upper abdomen. IMPRESSION: 1. Moderate to severe lumbar spondylosis without acute findings. Reviewed, dictated and finalized at location A.
[2020-05-09 12:31] VITALS: BP 190/114; PULSE 76; RESP 20; TEMP 36.3; O2SAT 97
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
[2020-05-09 13:10] VITALS: BP 166/99; PULSE 69; RESP 20; TEMP 36.3; O2SAT 98
== END 2020-05-09 13:10 | disposition home or self-care (01) ==
PROVIDERS: Emergency Provider Emergency Medicine; PCP Internal Medicine
DX: S43.401A Unspecified sprain of right shoulder joint, initial encounter (principal); S39.012A Strain of muscle, fascia and tendon of lower back, initial encounter; V89.2XXA Person injured in unspecified motor-vehicle accident, traffic, initial encounter
CPT/HCPCS: 72100; 73030; 99282; 99284

== ENCOUNTER 2020-06-28 15:28 | Emergency (ER) | payer MEDICARE, MEDICAID, SELFPAY ==
--- NOTE | ~2020-06-28 | CT_ITS ---
EXAMINATION: CT chest abdomen pelvis w con EXAM DATE: 06/28/2020 17:16 INDICATION: Recurrent nausea and vomiting. Abdominal pain. TECHNIQUE: Spiral CT of the chest, abdomen and pelvis was performed following intravenous injection o f 100 mL Omnipaque 350. Axial, coronal and sagittal images chest, abdomen and pelvis were reviewed. The dose-length product (DLP) for this examination was 705.94 mGy-cm. The exposure was tailored a ccording to patient size (auto mA exposure control), and iterative reconstruction (ASIR) was used as additional dose reduction technique. Comparison is made to prior examination from 10/18/2019. FINDINGS: CHEST: Mild to moderate emphysema. There are no pleural or pericardial effusions. Tracheobronchia l tree is patent. There is no mediastinal, hilar or axillary lymphadenopathy. There is no pneumot horax. Heart normal in size. There is mild coronary arterial calcification, arterial sclerosis. ABDOMEN PELVIS: Multiple liver cysts. The pancreas and right adrenal gland are unremarkable. Left adr enal gland mildly enlarged, could be an adenoma correlating with prior study. Thrombosed appearing an eurysm 2 cm from the origin of the celiac artery measuring about 1.3 cm. Gallbladder is unremarkable . No biliary obstruction. Portal and splenic veins are patent. Kidneys enhance symmetrically. The re is no hydronephrosis. Small region of right renal cortical scarring. The prostate is unremarkable . The bladder is unremarkable. There is no retroperitoneal or pelvic lymphadenopathy. There is mi ld scattered arteriosclerotic disease. Several small fat-containing hernias above the umbilicus right of midline. Laparotomy wires. The appendix is normal. Surgical changes at the gastroesophageal junction. There is expected amount of colonic stool. No free intraperitoneal gas. There are no acute fractures identified. IMPRESSION: 1. No acute findings. 2. Mild to moderate emphysema. 3. Small supra umbilical fat-containing hernias. 4. Right renal cortical scarring. 5. Thrombosed celiac artery aneurysm. 6. Left adrenal hyperplasia versus adenoma. Reviewed, dictated and finalized at location A.
[2020-06-28 15:50] VITALS: BP 219/101; PULSE 76; RESP 20; TEMP 36.6; O2SAT 94
[2020-06-28] MEDS: ONDANSETRON INJ 4 MG/2 ML VIAL IV PUSH ×3 (16:24→20:31)
[2020-06-28] MEDS: PROCHLORPERAZINE EDISYLATE 10 MG/2 ML VIAL 5 MG IV PUSH ×3 (16:25→20:32)
[2020-06-28] MEDS: METOCLOPRAMIDE HCL INJ 10 MG/2 ML VIAL IV PUSH (16:25)
[2020-06-28 16:39] LABS: Basophils Absolute Auto 0.02 K/mm3 (0.00-0.10); Basophils Percent Auto 0.1 % (0.0-1.0); Eosinophils Absolute Auto 0.01 K/mm3 (0.02-0.50); Eosinophils Percent Auto 0.1 % (1.0-6.0); Hematocrit 46.6 % (40.0-54.0); Hemoglobin 15.3 g/dL (14.0-18.0); Immature Granulocyte Absolute 0.06 K/mm3 (0.00-0.00); Immature Granulocyte Percent A 0.4 % (0.0-0.0); Lymphocytes Absolute Auto 0.94 K/mm3 (1.10-4.50); Lymphocytes Percent Auto 5.9 % (18.0-42.0); Mean Corpuscular HGB Conc 32.8 g/dL (32.0-36.0); Mean Corpuscular Hemoglobin 27.9 pg (27.0-31.0); Mean Platelet Volume 9.9 fl (8.7-11.0); Neutrophils Absolute Auto 14.1 K/mm3 (1.7-7.2); Neutrophils Percent Auto 88.5 % (50.0-70.0); Platelet Count Result 278 K/mm3 (150-420); Red Blood Count 5.48 M/mm3 (4.70-6.10); White Blood Count 15.9 K/mm3 (4.8-10.8)
[2020-06-28] MEDS: SODIUM CHLORIDE 0.9% IV 1,000 ML 500 ML IV CONT (16:51)
[2020-06-28 16:54] LABS: Alanine Aminotransferase 23 U/L (16-63); Albumin Level 4.2 g/dL (3.4-5.0); Alkaline Phosphatase 105 U/L (46-116); Anion Gap 14 mmol/L (8-16); Aspartate Amino Transferase 27 U/L (15-37); Bilirubin,Total 0.6 mg/dL (0.00-1.00); Blood Urea Nitrogen 19 mg/dL (7-18); Calcium 9.5 mg/dL (8.5-10.1); Carbon Dioxide 25 mmol/L (21-32); Chloride 102 mmol/L (98-108); Estimated Glomerular Filt Rate 53; Glucose 180 mg/dL (70-99); Osmolality Calculated 299 mOsm/kg (285-295); Potassium 4.2 mmol/L (3.5-5.1); Sodium 141 mmol/L (136-145); Total Protein 8.1 g/dL (6.4-8.2)
[2020-06-28 16:57] LABS: Lactic Acid Reflex 4.4 mmol/L (0.4-2.0)
[2020-06-28 17:30] VITALS: BP 188/95
[2020-06-28 18:09] LABS: Appearance Urine Clear (Clear); Bilirubin Urine Negative (Negative); Color Urine Yellow (Yellow); Glucose Urine UA Negative (Negative); Ketones Urine 1+ (Negative); Leukocyte Esterase Ur Negative (Negative); Nitrate Urine Negative (Negative); Protein Urine 2+ (Negative)
[2020-06-28 18:11] LABS: Amylase 22 U/L (25-115); Lipase 28 U/L (73-393)
[2020-06-28 18:17] LABS: Add Urine Microscopic? YES; Blood Urine Trace-Intact (Negative); RBC Urine 0-2 /hpf (0-2); Transitional Epi Cells Urine Few /hpf; WBC Urine 0-3 /hpf (0-3)
[2020-06-28 18:18] LABS: Bacteria Urine Trace /hpf
[2020-06-28 18:27] LABS: Amphetamine Screen Urine Negative (Negative); Barbiturate Screen Urine Negative (Negative); Benzodiazepines Screen Urine Negative (Negative); Cannabinoid Screen Urine Positive (Negative); Cocaine Screen Urine Negative (Negative); Methadone Screen Urine Negative (Negative); Opiate Screen Urine Positive (Negative); Phencyclidine Screen Urine Negative (Negative)
[2020-06-28] MEDS: SODIUM CHLORIDE 0.9% IV 1,000 ML 1000 ML IV CONT (18:48)
--- NOTE | 2020-06-28 18:50 | ED.NAVMDI ---
HPI - Nausea/Vomiting/Diarrhea General Chief complaint: Nausea/Vomiting/Diarrhea Stated complaint: nausea Time Seen by Provider: 06/28/20 16:19 Source: patient and family Mode of arrival: ambulatory Limitations: no limitations History of Present Illness HPI Narrative: Patient comes in with recurrent nausea and emesis at home. He had home compazine for use as needed in the past, from when he was here before with a kidney stone. He had been doing well so this was not refilled. It now appears he had zurdo using the compazine at times when he had nausea and vomiting at home, off and on. He developed nausea and vomiting last pm and has had recurrent nausea and vomiting since then. Nausea has been moderately severe to severe, ongoing since last pm, not relieved by measures taken at home. He has had recurrent ongoing emesis. This has not been precipitated by anything known. No other known associated signs, or symptoms. MD elicited complaint: nausea and vomiting Onset (ago): hour(s) Description of vomiting: food contents Description of diarrhea: semi-solid Associated nausea: Yes Associated abdominal pain: No Location of pain: epigastric (mild) Pain consistency: intermittent Exacerbating factors: other (none known) Associated symptoms: denies other symptoms Related Data Home Medications Medication Instructions Recorded Confirmed diclofenac sodium 75 mg PO BID PRN 10/18/19 06/28/20 famotidine [Pepcid] 40 mg PO DAILY 10/18/19 06/28/20 gabapentin 300 mg PO TID 10/18/19 06/28/20 amitriptyline 25 mg PO HS 05/09/20 06/28/20 Allergies Allergy/AdvReac Type Severity Reaction Status Date / Time No Known Allergies Allergy Verified 05/09/20 12:36 Review of Systems Review of Systems: ROS unobtainable: Yes unobtainable due to medical condition Constitutional: Constitutional: Reports no additional constitutional complaints Eyes: Eyes: Reports no additional eye complaints ENT: Reports system reviewed and no additional complaints, except as documented Cardiovascular: Cardiovascular: Reports no additional cardiovascular complaints Respiratory: Respiratory: Reports no additional respiratory complaints Gastrointestinal: Gastrointestinal: Reports no additional gastrointestinal complaints Genitourinary: Genitourinary: Reports no additional male genitourinary complaints Musculoskeletal: Musculoskeletal: Reports no additional musculoskeletal complaints Integumentary/Breasts: Skin/Breast: Reports system reviewed and no additional complaints, except as docu Neurologic: Reports system reviewed and no additional complaints, except as documented Psychiatric: Psychiatric: Reports no additional psychiatric complaints Endocrine: Endocrine: Reports no additional endocrine complaints Hematologic/Lymphatic: Hematologic/Lymphatic: Reports no additional hematologic/lymphatic complaints Allergic/Immunologic: Allergic/Immunologic: Reports no additional allergic/immunologic complaints PMFSH Past Medical History Medical History (Updated 06/28/20 @ 21:58 by Montana Edmondson MD) Cyclical vomiting syndrome Surgical History Surgical History History of lumbar surgery Family History Family History Mother Heart disease Social History Social History Smoking packs per day: 2 Smoking cigarettes per day: 40.0 Years smoked: 43 Smoking pack-years: 86.00 Smoking status: Current every day smoker Tobacco type: cigarettes Alcohol intake: current Substance use: current Substance use type: marijuana Last use: daily use Gender identity (if verbalized by the patient): Male Spiritual care concerns: No Exam Const: Orientation/consciousness: patient oriented x3 HENMT: Head: normal to inspection Ears: external ears normal General nose exam: Normal external nose present Laura
[2020-06-28 19:00] VITALS: BP 179/93
--- NOTE | 2020-06-28 19:02 | PC.NURSE ---
CALL PLACED TO [facility] BY ERP PER PATIENT REQUEST
--- NOTE | 2020-06-28 19:19 | PC.NURSE ---
erp speaking with [facility]. pt resting quietly per cot. call funk in reach, at bedside
[2020-06-28 19:35] LABS: Reflex Lactic Acid Yes or No Add Lactic
[2020-06-28 20:34] VITALS: BP 162/91; PULSE 72; RESP 18; O2SAT 98
--- NOTE | 2020-06-28 20:35 | PC.NURSE ---
call to [facility], awaiting bed placement
[2020-06-28 21:32] LABS: Lactic Acid 2.2 mmol/L (0.4-2.0)
[2020-06-28 22:02] VITALS: BP 148/83; PULSE 86; RESP 20; TEMP 36.9; O2SAT 98
--- NOTE | 2020-06-28 22:30 | PC.NURSE ---
[facility] called for transport.
--- NOTE | 2020-06-28 23:06 | PC.NURSE ---
[facility] staff here, report to mikie najera, filemaker developer. pt alert and oriented. no complaints . pt loaded to [facility] cot.
== END 2020-06-28 23:06 | disposition short-term general hospital (02) ==
PROVIDERS: Emergency Provider Emergency Medicine; PCP Internal Medicine
DX: K55.1 Chronic vascular disorders of intestine (principal); Z79.899 Other long term (current) drug therapy; F17.200 Nicotine dependence, unspecified, uncomplicated
CPT/HCPCS: 36415; 71260; 74177; 80053; 80307; 81001; 82150; 83605; 83690; 85025; 87040; 96361; 96365; 96375; 96376; 99285; J0780; J2405; J2543; J2765; J7030; Q9967

== ENCOUNTER 2020-07-25 06:49 | Outpatient (CLI) | payer MEDICARE, MEDICAID, SELFPAY ==
--- NOTE | ~2020-07-25 | MR_ITS ---
EXAMINATION: MRA brain wo con EXAM DATE: 07/25/2020 10:27 INDICATION: Aneurysm, vomiting. TECHNIQUE: 3-D [id number] MRA of the intracranial arteries was performed without contrast. Axial T1 weighted sequence. Diffusion weighted axial sequence also obtained. There are no prior studies for comparison. FINDINGS: Acute small bilateral periventricular white matter and right basal ganglia lacunar infarcti ons. There is right frontal lobe anterior inferior arteriovenous malformation. This is a high flow lesion at risk for hemorrhage, but no acute hemorrhage present today. There is normal flow related signal se en within the vertebral, basilar and internal carotid arteries. There is no proximal stenosis. Ther e are no aneurysms identified. Flow in the cerebral arteries is symmetric. There is right-sided po sterior communicating artery dominant posterior cerebral artery. Ethmoid and frontal lobe mucoperiost eal thickening. IMPRESSION: 1. Right frontal lobe arteriovenous malformation. Recommend neurosurgical/neuro interventional consu lt. 2. Scattered small acute periventricular, right basal ganglia lacunar infarctions. Reviewed, dictated and finalized at location A. IMPRESSION: 1. Right frontal lobe arteriovenous malformation. Recommend neurosurgical/neur o interventional consult. 2. Scattered small acute periventricular, right basal ganglia lacunar infarcti ons.
--- NOTE | ~2020-07-25 | MR_ITS ---
EXAMINATION: MRA neck wo/w con EXAM DATE: 07/25/2020 10:28 INDICATION: Headaches with vomiting. TECHNIQUE: Magnetic resonance angiography (MRA) of the neck was performed. Sequences included axial 2 D-time of flight T1-weighted FSPGR and coronal T1-weighted FSPGR without and with 20 mL Multihance in travenous contrast. There is no prior study for comparison. FINDINGS: There is 0% stenosis of the right carotid bulb relative to normal distal artery lumen diameter (NASCE T criteria). There is 0% stenosis of the left carotid bulb relative to normal distal artery lumen di ameter. No evidence of carotid or vertebral basilar arterial dissection. The right vertebral artery is domina nt. IMPRESSION: 1. 0% stenosis of the right carotid bulb. 2. 0% stenosis of the left carotid bulb. Reviewed, dictated and finalized at location A.
== END 2020-07-25 06:50 | disposition home or self-care (01) ==
PROVIDERS: PCP Internal Medicine; Visit Provider Internal Medicine
DX: I74.8 Embolism and thrombosis of other arteries (principal)
CPT/HCPCS: 70544; 70549; A9577

== ENCOUNTER 2020-08-25 09:00 | Outpatient (CLI) | payer MEDICARE, SELFPAY ==
[2020-08-25 09:39] LABS: Anion Gap 12 mmol/L (8-16); Blood Urea Nitrogen 13 mg/dL (7-18); Calcium 8.9 mg/dL (8.5-10.1); Carbon Dioxide 26 mmol/L (21-32); Chloride 105 mmol/L (98-108); Estimated Glomerular Filt Rate > 60; Glucose 99 mg/dL (70-99); Osmolality Calculated 296 mOsm/kg (285-295); Potassium 4.3 mmol/L (3.5-5.1); Sodium 143 mmol/L (136-145)
[2020-08-27 13:28] LABS: DHEA-Sulfate 46 mcg/dL (24-244)
[2020-08-28 14:07] LABS: Adrenocorticotropic Hormone 24 pg/mL (6-50)
[2020-08-30 13:53] LABS: Cortisol Random 9.4 mcg/dL (***)
== END 2020-08-25 09:01 | disposition home or self-care (01) ==
LOC: CHSLAB 09:07
PROVIDERS: PCP Internal Medicine
DX: R79.89 Other specified abnormal findings of blood chemistry (principal); I10 Essential (primary) hypertension; E27.8 Other specified disorders of adrenal gland
CPT/HCPCS: 36415; 80048; 82024; 82088; 82533; 82627; 84244

== ENCOUNTER 2020-08-26 12:58 | Outpatient (CLI) | payer MEDICARE, SELFPAY ==
[2020-08-29 19:39] LABS: Calculated Total (E+NE) 17 mcg/24 h (26-121); Dopamine, 24hr Urine 114 mcg/24 h (52-480); Norepinephrine, 24hr Urine 17 mcg/24 h (15-100)
[2020-08-31 22:27] LABS: Metanephrine, Total Urine 187 mcg/24 h (224-832); Metanephrine, Urine 55 mcg/24 h (90-315); Normetanephrine, Urine 132 mcg/24 h (122-676)
== END 2020-08-26 12:59 | disposition home or self-care (01) ==
LOC: CHSLAB 13:02
PROVIDERS: PCP Internal Medicine
DX: R79.89 Other specified abnormal findings of blood chemistry (principal); E27.8 Other specified disorders of adrenal gland
CPT/HCPCS: 82384; 82530; 83835

== ENCOUNTER 2020-10-03 09:10 | Outpatient (CLI) | payer MEDICARE, MEDICAID, SELFPAY ==
--- NOTE | ~2020-10-03 | MR_ITS ---
EXAMINATION: MR orbits face neck wo/w con DATE: 10/03/2020 11:39 INDICATION: Arteriovenous malformation. TECHNIQUE: Magnetic resonance imaging (MRI) of the orbits was performed without and with 16 mL MultiH ance intravenous contrast. Sequences included sagittal and axial T1-weighted FSE, axial diffusion-marixa ghted FS EPI, axial T2*-weighted GRE, axial T2-weighted FLAIR Propeller, and axial T2-weighted Propel ler. Postcontrast sequences included axial and coronal T1-weighted FSE. Apparent diffusion coefficien t (ADC) maps were created. Sequences of the orbits included coronal and axial T2-weighted FS FSE and T1-weighted FSE. Postcontrast sequences included axial and coronal T1-weighted FS FSE. COMPARISON: Head CT 10/22/2019, head MRA 07/25/20 FINDINGS: There is an old lacunar infarct in the hugh. There are old lacunar infarcts in the bilatera l basal ganglia and right thalamus. There are scattered areas of nonspecific increased T2-weighted si gnal intensity in the cerebral white matter, hugh, and cerebellar white matter. There are scattered s mall acute infarcts involving right frontal and parietal lobes and left temporal lobe. There is no ab normal mass lesion. There are punctate old microhemorrhages in the left thalamus and left parietal lo be. There are prominent blood vessels in inferior right frontal lobe, consistent with an arteriovenou s malformation. The ventricles are normal in size. There is mucosal thickening in the paranasal sinu ses. The mastoid air cells are normal. The extraocular muscles, optic nerves, and ocular globes are n ormal. IMPRESSION: 1. Small acute infarcts involving the right frontal and parietal lobes and left temporal lobe. 2. Prominent blood vessels in inferior right frontal lobe, consistent with an arteriovenous malformat ion. 3. Old infarcts involving the hugh, bilateral basal ganglia, and right thalamus. 4. Moderate nonspecific cerebral white matter disease and disease involving the hugh and cerebral whi te matter, which likely represents chronic small vessel ischemic disease. Reviewed, dictated and finalized at location A. IMPRESSION: 1. Small acute infarcts involving the right frontal and parietal lobes and left temporal lobe. 2. Prominent blood vessels in inferior right frontal lobe, consistent with an a rteriovenous malformation. 3. Old infarcts involving the hugh, bilateral basal ganglia, and right thalamus . 4. Moderate nonspecific cerebral white matter disease and disease involving the hugh and cerebral white matter, which likely represents chronic small vessel i schemic disease.
[2020-10-03 09:35] LABS: Estimated Glomerular Filt Rate 60
== END 2020-10-03 09:11 | disposition home or self-care (01) ==
LOC: CHSIMG 09:15
PROVIDERS: PCP Internal Medicine
DX: Q27.30 Arteriovenous malformation, site unspecified (principal)
CPT/HCPCS: 70543; A9577

== ENCOUNTER 2020-11-11 17:24 | Emergency (ER) | payer MEDICARE, MEDICAID, SELFPAY ==
[2020-11-11] VITALS (7 sets, daily range): BP systolic 108–153; BP diastolic 69–110; PULSE 68–88; RESP 16–18; TEMP 36.6; O2SAT 95–96
--- NOTE | ~2020-11-11 | CT_ITS ---
EXAMINATION: CT brain wo con INDICATION: Left hemiparesis COMPARISON: 10/22/2019 and MRI dated 07/25/2020 TECHNIQUE: Standard unenhanced head CT. The dose-length product (DLP) was 681.00 mGy-cm. The mA was a djusted according to patient size. Iterative reconstruction technique was employed. FINDINGS: There is no intracranial hemorrhage, acute infarction, or abnormal mass lesion. Old lacunar infarcts are again noted in the caudate nuclei. The known right frontal lobe arteriovenous malformat ion is not well demonstrated. The ventricles are normal. There is no abnormal mass effect or midline shift. The bertrand-white matter differentiation is normal. The basal cisterns are patent. The orbits are normal. The paranasal sinuses, mastoids and calvarium are normal. IMPRESSION: 1. No acute intracranial abnormality. Reviewed, dictated and finalized at location A.
--- NOTE | 2020-11-11 17:30 | ED.NEUROSD ---
HPI - Neuro Symptoms/Deficit General Chief Complaint: Neuro Symptoms/Deficit Stated Complaint: possible stroke Time Seen by Provider: 11/11/20 17:30 Source: patient and family Mode of arrival: wheelchair History of Present Illness HPI Narrative: 50-year-old man with a history of right frontal AVM and evidence of past CVAs on brain imaging brought to the emergency department today by his after he was found hanging out of his car and difficulty getting out of his car at approximately 4:45 a.m. this afternoon. She managed to get him in the house in his symptoms, namely difficulty moving his left leg, seemed to resolve however after she left the room her daughter called stating that he was having difficulty lighting his cigarette because of left arm weakness. She then brought him to the emergency department. He denies falls and injuries. states that he had some nasal congestion and rhinorrhea as of late. Onset (ago): minute(s) (45) Time: 16:45 Last Observed Normal: 16:00 Timing confirmed by: spouse and family member Location: speech, left face, left arm and left leg History of same: No Severity: moderate Quality: weak, intermittent and improving Relieving factors: none Exacerbating factors: none Context: sudden onset On Anticoagulants: No Associated symptoms: denies other symptoms Treatments Prior to Arrival: none Related Data Home Medications Medication Instructions Recorded Confirmed diclofenac sodium 75 mg PO BID PRN 10/18/19 06/28/20 gabapentin 300 mg PO TID 10/18/19 06/28/20 amitriptyline 25 mg PO HS 05/09/20 06/28/20 nifedipine 60 mg PO DAILY 11/11/20 11/11/20 omeprazole 40 mg PO DAILY 11/11/20 11/11/20 Allergies Allergy/AdvReac Type Severity Reaction Status Date / Time No Known Allergies Allergy Verified 05/09/20 12:36 Review of Systems Review of Systems: All systems reviewed & are unremarkable except as noted in HPI and below Constitutional: Constitutional: Denies chills, Denies fever(s) and Reports weakness Eyes: Eyes: Denies change in vision and Denies photophobia ENT: Reports nasal congestion and Denies sore throat Cardiovascular: Cardiovascular: Denies chest pain and Denies radiating jaw, neck or arm pain Respiratory: Respiratory: Denies cough, Denies dyspnea and Denies wheezing Gastrointestinal: Gastrointestinal: Denies abdominal pain, Denies diarrhea, Denies nausea and Denies vomiting Musculoskeletal: Musculoskeletal: Denies back pain, Denies arthralgias and Denies joint swelling Integumentary/Breasts: Skin/Breast: Denies pruritus, Denies erythema and Denies rash Neurologic: Denies vertigo, Denies dizziness and Denies syncope Hematologic/Lymphatic: Hematologic/Lymphatic: Denies easy bleeding and Denies easy bruising Allergic/Immunologic: Allergic/Immunologic: Denies lip swelling, Denies throat swelling and Denies tongue swelling PMFSH Past Medical History Medical History (Updated 11/11/20 @ 19:00 by Carlos Ash MD) AVM (arteriovenous malformation) brain Cyclical vomiting syndrome Hypertension Left ureteral calculus Migraine headache Surgical History Surgical History H/O resection of stomach History of lumbar surgery Family History Family History Mother Heart disease Social History Social History Smoking packs per day: 2 Smoking cigarettes per day: 40.0 Years smoked: 43 Smoking pack-years: 86.00 Smoking status: Current every day smoker Tobacco type: cigarettes Alcohol intake: current Substance use: current Substance use type: marijuana Last use: daily use Gender identity (if verbalized by the patient): Male Sexual Orientation (if Verbalized by the Patient): Straight or Heterosexual Spiritual care concerns: No Exam Const: General: no acute distress, alert and ill appearing chr
--- NOTE | 2020-11-11 17:31 | ECG_ITS ---
Measurements Intervals [place] Rate: 85 P: 67 MD: 147 QRS: 43 QRSD: 87 T: 60 QT: 374 QTc: 446 Interpretive Statements SINUS RHYTHM ATRIAL AND VENTRICULAR PREMATURE COMPLEXES INCOMPLETE RIGHT BUNDLE BRANCH BLOCK MINIMAL Q WAVES- ANTEROLAT/INF LEADS BORDERLINE ECG Electronically Signed On 11-12-2020 8:23:57 CDT by Brian Penn D.O.
[2020-11-11 17:35] LABS: Glucose Point of Care 107 mg/dl (65-105)
[2020-11-11 17:55] LABS: Basophils Absolute Auto 0.11 K/mm3 (0.00-0.10); Basophils Percent Auto 1.2 % (0.0-1.0); Eosinophils Absolute Auto 0.23 K/mm3 (0.02-0.50); Eosinophils Percent Auto 2.4 % (1.0-6.0); Hematocrit 45.8 % (40.0-54.0); Hemoglobin 14.7 g/dL (14.0-18.0); Immature Granulocyte Absolute 0.03 K/mm3 (0.00-0.00); Immature Granulocyte Percent A 0.3 % (0.0-0.0); Lymphocytes Absolute Auto 1.88 K/mm3 (1.10-4.50); Lymphocytes Percent Auto 19.9 % (18.0-42.0); Mean Corpuscular HGB Conc 32.1 g/dL (32.0-36.0); Mean Corpuscular Hemoglobin 26.9 pg (27.0-31.0); Mean Corpuscular Volume 83.9 fL (78.0-102.0); Mean Platelet Volume 9.4 fl (8.7-11.0); Monocytes Absolute Auto 0.65 K/mm3 (0.10-0.90); Monocytes Percent Auto 6.9 % (2.0-11.0); Neutrophils Absolute Auto 6.6 K/mm3 (1.7-7.2); Neutrophils Percent Auto 69.3 % (50.0-70.0); Platelet Count Result 290 K/mm3 (150-420); Red Blood Count 5.46 M/mm3 (4.70-6.10); Red Cell Distribution Width 15.5 % (11.6-14.4); White Blood Count 9.5 K/mm3 (4.8-10.8)
[2020-11-11 18:10] LABS: Partial Thromboplastin Time 26.2 SEC (23.90-30.70); Prothrombin Time 10.5 Seconds (9.50-12.10)
--- NOTE | 2020-11-11 18:10 | PC.NURSE ---
Dr. Ash called [facility] for transfer to [facility].
[2020-11-11 18:13] LABS: Alanine Aminotransferase 21 U/L (16-63); Albumin Level 3.4 g/dL (3.4-5.0); Alkaline Phosphatase 99 U/L (46-116); Anion Gap 9 mmol/L (8-16); Aspartate Amino Transferase 15 U/L (15-37); Bilirubin,Total 0.2 mg/dL (0.00-1.00); Blood Urea Nitrogen 12 mg/dL (7-18); Calcium 8.6 mg/dL (8.5-10.1); Carbon Dioxide 25 mmol/L (21-32); Chloride 106 mmol/L (98-108); Estimated Glomerular Filt Rate 60; Glucose 123 mg/dL (70-99); Osmolality Calculated 290 mOsm/kg (285-295); Potassium 3.9 mmol/L (3.5-5.1); Sodium 140 mmol/L (136-145); Total Protein 6.7 g/dL (6.4-8.2); Troponin I 7.7 ng/L (0.00-60.4)
[2020-11-11 18:14] LABS: Ethanol < 3 mg/dL (0-6)
--- NOTE | 2020-11-11 18:21 | PC.NURSE ---
Pt not keeping caridac leads on. Dr. Ash notified.
[2020-11-11 18:48] LABS: SARS-CoV-2 RNA PCR Negative (Negative)
--- NOTE | 2020-11-11 18:48 | PC.NURSE ---
Pt able to tolerate small sips of water without choking, coughing, or spitting up water. Pt verbalized he felt comfortable drinking and had no difficulty swallowing.
[2020-11-11] MEDS: ASPIRIN 81 MG CHEWABLE TABLET 324 MG PO (18:55)
[2020-11-11] MEDS: levETIRAcetam 1000MG/NACL100ML 1,000 MG/100 ML BAG 400 MG IVPB (19:03)
--- NOTE | 2020-11-11 19:08 | PC.NURSE ---
Pt accepted by Dr. Cates with neurology at [facility] in [place].
--- NOTE | 2020-11-11 19:28 | PC.NURSE ---
Report given to RAEANN Zuñiga.
--- NOTE | 2020-11-11 19:34 | PC.NURSE ---
ordered 2nd line line blew, patient refused per Lurdes CARY
--- NOTE | 2020-11-11 19:40 | PC.NURSE ---
refused perez cath
--- NOTE | 2020-11-11 19:55 | PC.NURSE ---
SR on monitor, pulse ox 95 room air patient refused glucometer
--- NOTE | 2020-11-11 20:28 | PC.NURSE ---
developer advocate weak apollo, pushes weak apollo, left droop to mouth
--- NOTE | 2020-11-11 21:15 | PC.NURSE ---
cont to refuse glucometer took leads off wont put on
--- NOTE | 2020-11-11 21:18 | PC.NURSE ---
correctional classification counselor & pushes equal but weak...left mouth slight droop when smiles
--- NOTE | 2020-11-11 21:19 | PC.NURSE ---
got patient to put on leads Monitor SR
== END 2020-11-11 22:54 | disposition short-term general hospital (02) ==
PROVIDERS: Emergency Provider Emergency Medicine; PCP Internal Medicine
DX: G81.94 Hemiplegia, unspecified affecting left nondominant side (principal); R47.1 Dysarthria and anarthria; Q28.2 Arteriovenous malformation of cerebral vessels; I10 Essential (primary) hypertension; F17.210 Nicotine dependence, cigarettes, uncomplicated; Z86.73 Personal history of transient ischemic attack (TIA), and cerebral infarction without residual deficits; Z20.822 Contact with and (suspected) exposure to COVID-19; Z79.899 Other long term (current) drug therapy
CPT/HCPCS: 36415; 70450; 80053; 80307; 82948; 84484; 85025; 85610; 85730; 93005; 96374; 99285; A9270; C9803; J1953; U0003; U0005

== ENCOUNTER 2021-01-14 08:00 | Outpatient (RCR) | payer MEDICARE, OTHER, MEDICAID, SELFPAY ==
--- NOTE | 2020-11-24 08:26 | OTOPEVAL ---
Thank you for referring Hussein Livingston to [facility].? The patient is scheduled to be seen for therapy? ____x/week for ___ weeks. Please review, sign, date and return this plan of care GUERLINE. I agree with and certify that the following plan of care is medically necessary. Referring Physician Date Admitting Provider: Attending Provider: Joesph Hollis MD Referring Provider: *OT Outpatient Evaluation Start: 11/24/20 07:07 Freq: Status: Active Protocol: Document 11/24/20 07:07 [facility]Rec: 11/24/20 08:26 [id number] Therapy Assessment Status Assessment Status Assessment Status Evaluation Outpatient Past Medical History Neurological History Hx Migraine Yes Cardiovascular History Hx Hypertension Yes Gastrointestinal History Hx Ulcer Yes Hx Other Gastrointestinal Disorders Yes: Dumping syndrome, hyeremesis Genitourinary History Hx Kidney Stones Yes Musculoskeletal History Hx Back Pain Yes Hx Spinal Surgery Yes HEENT History Hx Tonsillectomy Yes Integumentary History Hx Other Skin Disorders Yes: Skin graft to left lower arm due to skin infection. Psychosocial History Hx Anxiety Yes Pain History Has Past Pain Affected Your Daily Life Yes Evaluation Information Problem Diagnosis cognitive difficulty Onset 11/14/20 Cause CVA Subjective Information Patient reports that he had a Query Text:As Reported By Patient/ stroke last Monday and Family spent one day in the hospital. Patient reports that he hasnt noticed any deficits however his tells him that his speech is slurred. Patient reports that he does forget things a lot. Prior Level of Function Activity Level (Last 3 Months) Occupation retired Hand Dominance Right Activity of Daily Living Ability Independent Indoor/Home Mobility Independent Community Mobility Independent Stairs Ability Independent Functional Cognition (Planning, Shopping Independent , Taking Medications) Cooking Yes Cleaning Yes Laundry Yes Shopping Yes Driving Yes Pain Assessment Timing of Pain Assessment Timing of Pain Assessment Assessment Self Report Self Report Pain Level 0 Pain Score Pain Score
--- NOTE | 2020-11-24 08:42 | PTOPEVAL ---
Thank you for referring Hussein Livingston to [facility].? The patient is scheduled to be seen for therapy? ____x/week for ___ weeks. Please review, sign, date and return this plan of care GUERLINE. I agree with and certify that the following plan of care is medically necessary. Referring Physician Date Admitting Provider: Attending Provider: Joesph Hollis MD Referring Provider: *PT Outpatient Evaluation Start: 11/24/20 07:59 Freq: Status: Active Protocol: Document 11/24/20 07:59 ACR (Rec: 11/24/20 08:41 ACR [id number]) Therapy Assessment Status Assessment Status Assessment Status Evaluation Outpatient Past Medical History Neurological History Hx Migraine Yes Cardiovascular History Hx Hypertension Yes Gastrointestinal History Hx Ulcer Yes Hx Other Gastrointestinal Disorders Yes: Dumping syndrome, hyeremesis Genitourinary History Hx Kidney Stones Yes Musculoskeletal History Hx Back Pain Yes Hx Spinal Surgery Yes HEENT History Hx Tonsillectomy Yes Integumentary History Hx Other Skin Disorders Yes: Skin graft to left lower arm due to skin infection. Psychosocial History Hx Anxiety Yes Pain History Has Past Pain Affected Your Daily Life Yes Evaluation Information Problem Diagnosis CVA Onset 11/14/20 Subjective Information Patient states that he has Query Text:As Reported By Patient/ lost his balance since he had Family his stroke. He states he spent the night at the hospital after his stroke. Patient states he does not use an assistive device. He denies falls. He states he has ramps to get into the house and there are a couple steps within the home, but he has no difficulty with them. Patient states that he has no difficulty doing anything, but his balance is off. Prior Level of Function Activity Level (Last 3 Months) Occupation disability Hand Dominance Right Activity of Daily Living Ability Independent Indoor/Home Mobility Independent Community Mobility Independent Stairs Ability Independent Functional Cognition (Planning, Shopping Independent , Taking Medications) Cooking Yes Cleaning Yes
--- NOTE | 2020-12-02 08:13 | PCOTNOTE ---
Patient seen for 2 OT sessions and is discharged with a referral to for further assessment of cognition and memory. MS
--- NOTE | 2020-12-11 11:20 | STOPEVAL ---
Thank you for referring Hussein Livingston to [facility].? The patient is scheduled to be seen for therapy? 1x/week for 10 sessions. Please review, sign, date and return this plan of care GUERLINE. I agree with and certify that the following plan of care is medically necessary. Referring Physician Date Admitting Provider: Attending Provider: Joesph Hollis MD Referring Provider: * Outpatient Evaluation Start: 12/11/20 10:48 Freq: Status: Active Protocol: Document 12/11/20 09:30 MJB (Rec: 12/11/20 11:19 [email or web address] [id number]) Therapy Assessment Status Assessment Status Assessment Status Evaluation Outpatient Past Medical History Past Medical History Source of Past Medical History Patient Neurological History Hx Cerebrovascular Accident (CVA) Yes: CVA 11-14-20 Hx Migraine Yes Cardiovascular History Hx Hypertension Yes Respiratory History Hx Respiratory Disorders No Significant History Gastrointestinal History Hx Ulcer Yes Hx Other Gastrointestinal Disorders Yes: Dumping syndrome, hyperemesis Genitourinary History Hx Kidney Stones Yes Musculoskeletal History Hx Back Pain Yes Hx Spinal Surgery Yes Hematological History Hx Hematological Disorders No Significant History Endocrine History Hx Endocrine Disorders No Significant History HEENT History Hx Tonsillectomy Yes Integumentary History Hx Other Skin Disorders Yes: Skin graft to left lower arm due to skin infection. 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 Prior Level of Function Activity Level (Last 3 Months) Activity of Daily Living Ability Independent Driving Yes Home Setting Living Situation With Spouse Prior Swallow Level Prior Intake Method Oral Prior Diet Regular (Level 7 Diet) Prior Liquid Consistency Thin (Level 0 Diet) Prior Cognition/Communication Prior Communication Level No Impairment Prior Cognitive Function Judgement Intact Prior Ability to Handle Finances Independent Comment
--- NOTE | 2020-12-21 11:15 | PCSTNOTE ---
On 12/21/20, the student, [Alivia Spangler ], provided care and completed [employer] documentation on this patient. I have reviewed the student's documentation and agree with the findings.
--- NOTE | 2020-12-23 07:29 | PTOPEVAL ---
Thank you for referring Hussein Livingston to [facility].? The patient is scheduled to be seen for therapy? ____x/week for ___ weeks. Please review, sign, date and return this plan of care GUERLINE. I agree with and certify that the following plan of care is medically necessary. Referring Physician Date Admitting Provider: Attending Provider: Joesph Hollis MD Referring Provider: *PT Outpatient Evaluation Start: 11/24/20 07:59 Freq: Status: Active Protocol: Document 12/23/20 07:01 [facility] (Rec: 12/23/20 07:28 [facility] [id number]) Therapy Assessment Status Assessment Status Assessment Status Discharge Outpatient Past Medical History Past Medical History Source of Past Medical History Patient Neurological History Hx Cerebrovascular Accident (CVA) Yes: CVA 11-14-20 Hx Migraine Yes Cardiovascular History Hx Hypertension Yes Respiratory History Hx Respiratory Disorders No Significant History Gastrointestinal History Hx Ulcer Yes Hx Other Gastrointestinal Disorders Yes: Dumping syndrome, hyeremesis Genitourinary History Hx Kidney Stones Yes Musculoskeletal History Hx Back Pain Yes Hx Spinal Surgery Yes Hematological History Hx Hematological Disorders No Significant History Endocrine History Hx Endocrine Disorders No Significant History HEENT History Hx Tonsillectomy Yes Integumentary History Hx Other Skin Disorders Yes: Skin graft to left lower arm due to skin infection. 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 he reports no Family falls. he reports he continues to attend skilled ST therapy for speech and memory deficits . Pain Assessment Timing of Pain Assessment Timing of Pain Assessment Assessment Self Report Self Report Pain Level 0 Pain Score Pain Score 0: Self Report Lower Extremity Muscle Strength Testing Hip Strength Right Hip Flexion Strength 5 Normal Left Hip Flexion Strength 5 Normal Knee Strength Right Knee Flexion Strength 5 Normal Knee Extension Strength 5 Normal Left
--- NOTE | 2020-12-28 08:52 | PCSTNOTE ---
Patient called & cancelled scheduled appointment this date due to transportation difficulties. Patient is rescheduled for this .
--- NOTE | 2020-12-31 14:20 | PCSTNOTE ---
On 12/31/20, the student, [Alivia Spangler], provided care and completed [employer] documentation on this patient. I have reviewed the student's documentation and agree with the findings.
--- NOTE | 2021-01-04 12:55 | PCSTNOTE ---
On 01/04/21, the student, [Alivia Spangler], provided care and completed [employer] documentation on this patient. I have reviewed the student's documentation and agree with the findings.
--- NOTE | 2021-01-14 11:53 | PCSTNOTE ---
On 01/14/21, the student, [Alivia Spangler], provided care and completed [employer] documentation on this patient. I have reviewed the student's documentation and agree with the findings.
--- NOTE | 2021-01-18 14:39 | PCSTNOTE ---
On 01/18/21, the student, [Alivia Spangler ], provided care and completed [employer] documentation on this patient. I have reviewed the student's documentation and agree with the findings.
--- NOTE | 2021-01-25 15:30 | PCSTNOTE ---
On 01/25/21, the student, [Alivia Spangler], provided care and completed [employer] documentation on this patient. I have reviewed the student's documentation and agree with the findings.
--- NOTE | 2021-02-01 09:13 | PCSTNOTE ---
Patient called & cancelled scheduled appointment this date due to being sick with the flu.
--- NOTE | 2021-02-11 10:50 | PCSTNOTE ---
Patient did not show up for scheduled appointment this date. Attempted to call but was unable to leave a voicemail. Patient is not scheduled for any upcoming appointments and plan to d/c was discussed in the previous session.
--- NOTE | 2021-02-24 13:57 | PCSTNOTE ---
Admitting Provider: Attending Provider: Joesph Hollis MD Patient:Hussein Livingston Date of :1960 Patient has not returned for any further treatments since 01/25/2021, therefore he will be discharged at this time. Patient?s initial visit was on 12/11/2020 and he had a total of 7 visits. The goals have been partially met. The patient met the goals for immediate and delayed recall skills with functional paragraphs and temporal orientation skills. He presented with progression in goals for delayed recall of 4-5 words presented with 60% accuracy, divergent naming skills, and functional reading tasks. The patient feels that he is at his prior level of function and is ready to be discharged. Thank you for referring this patient to [facility]. Please review, sign, date and return this discharge summary GUERLINE. I have been updated about the patient's current status and I agree with discharge from the above service at this time. Referring Physician Date
== END 2021-01-25 23:59 | disposition home or self-care (01) ==
LOC: CHSST 08:00
PROVIDERS: PCP Internal Medicine; Visit Provider Internal Medicine
DX: I69.319 Unspecified symptoms and signs involving cognitive functions following cerebral infarction (principal)
CPT/HCPCS: 92507; 96125; 97110; 97112; 97161; 97165; 97530

== ENCOUNTER 2021-12-01 14:12 | Outpatient (CLI) | payer OTHER, SELFPAY ==
--- NOTE | ~2021-12-01 | XR_ITS ---
EXAMINATION: XR chest 2V Exam Date/Time: 12/01/2021 14:20 CDT HISTORY: L ANT CHEST PAIN Comparison: 12/14/2009. RESULT: Lines, tubes, and devices: Surgical clips and sutures over the GE junction. Lungs and pleura: Emphysematous change. Cardiomediastinal silhouette: Stable. Other: No acute osseous or upper abdominal finding. IMPRESSION: No acute cardiopulmonary process. Reviewed, dictated and finalized at location K.
== END 2021-12-01 14:13 | disposition home or self-care (01) ==
LOC: CHSIMG 14:13
PROVIDERS: PCP Internal Medicine; Visit Provider Internal Medicine
DX: R07.89 Other chest pain (principal)
CPT/HCPCS: 71046

== ENCOUNTER 2022-02-11 10:37 | Outpatient (CLI) | payer OTHER, SELFPAY ==
--- NOTE | 2022-02-11 10:45 | ECG_ITS ---
Measurements Intervals [place] Rate: 68 P: 67 HI: 157 QRS: 66 QRSD: 103 T: 57 QT: 404 QTc: 431 Interpretive Statements SINUS RHYTHM WITHIN NORMAL LIMITS COMPARED TO ECG 11/11/2020 18:05:42 ECTOPIC ACTIVITY IS NOT SEEN Electronically Signed On 02-11-2022 14:39:52 [employer]ISSION[employer] by Rafael Urbina M.D.
[2022-02-11 11:06] LABS: Basophils Percent Auto 1.1 % (0.0-1.0); Eosinophils Absolute Auto 0.17 K/mm3 (0.02-0.50); Hematocrit 46.2 % (40.0-54.0); Hemoglobin 15.4 g/dL (14.0-18.0); Immature Granulocyte Absolute 0.02 K/mm3 (0.00-0.00); Immature Granulocyte Percent A 0.2 % (0.0-0.0); Lymphocytes Absolute Auto 1.93 K/mm3 (1.10-4.50); Lymphocytes Percent Auto 22.2 % (18.0-42.0); Mean Corpuscular HGB Conc 33.3 g/dL (32.0-36.0); Mean Corpuscular Hemoglobin 29.6 pg (27.0-31.0); Mean Corpuscular Volume 88.8 fL (78.0-102.0); Mean Platelet Volume 9.6 fl (8.7-11.0); Monocytes Absolute Auto 0.58 K/mm3 (0.10-0.90); Monocytes Percent Auto 6.7 % (2.0-11.0); Neutrophils Absolute Auto 5.9 K/mm3 (1.7-7.2); Neutrophils Percent Auto 67.8 % (50.0-70.0); Platelet Count Result 245 K/mm3 (150-420); Red Cell Distribution Width 14.9 % (11.6-14.4); White Blood Count 8.7 K/mm3 (4.8-10.8)
[2022-02-11 11:11] LABS: Add Urine Microscopic? YES; Appearance Urine Clear (Clear); Bilirubin Urine Negative (Negative); Blood Urine Trace-Intact (Negative); Glucose Urine UA Negative (Negative); Ketones Urine Negative (Negative); Leukocyte Esterase Ur Trace (Negative); Nitrate Urine Negative (Negative); Protein Urine Negative (Negative); Urobilinogen Urine 0.2 mg/dL (0.2-1.0)
[2022-02-11 11:20] LABS: Bacteria Urine Trace /hpf; Color Urine Light Yellow (Yellow); RBC Urine 0-2 /hpf (0-2); WBC Urine 0-3 /hpf (0-3)
[2022-02-11 11:21] LABS: Partial Thromboplastin Time 27.6 SEC (23.90-30.70)
[2022-02-11 11:39] LABS: Alanine Aminotransferase 17 U/L (16-63); Alkaline Phosphatase 120 U/L (46-116); Anion Gap 6 mmol/L (8-16); Aspartate Amino Transferase 16 U/L (15-37); Bilirubin,Total 0.6 mg/dL (0.00-1.00); Blood Urea Nitrogen 11 mg/dL (7-18); Calcium 8.5 mg/dL (8.5-10.1); Carbon Dioxide 31 mmol/L (21-32); Chloride 103 mmol/L (98-108); Estimated Glomerular Filt Rate 54; Glucose 119 mg/dL (70-99); Osmolality Calculated 290 mOsm/kg (285-295); Potassium 3.6 mmol/L (3.5-5.1); Sodium 140 mmol/L (136-145); Total Protein 7.2 g/dL (6.4-8.2)
== END 2022-02-11 10:38 | disposition home or self-care (01) ==
PROVIDERS: PCP Internal Medicine; Visit Provider Internal Medicine
DX: Z01.818 Encounter for other preprocedural examination (principal); I10 Essential (primary) hypertension
CPT/HCPCS: 36415; 80053; 81001; 85025; 85610; 85730; 93005

== ENCOUNTER 2023-10-14 11:03 | Outpatient (CLI) | payer OTHER, SELFPAY ==
--- NOTE | ~2023-10-14 | XR_ITS ---
EXAMINATION: XR chest 2V 10/14/2023 11:18 INDICATION: Cough with wheezing PROCEDURE: 2 view chest COMPARISON: 12/01/2021 FINDINGS: The lungs are clear. The cardiomediastinal silhouette is within normal limits. There are no pleural effusions. There is no pneumothorax suspected. IMPRESSION: 1: NO ACUTE CARDIOPULMONARY DISEASE. Reviewed, dictated and finalized at location B.
== END 2023-10-14 11:04 | disposition home or self-care (01) ==
LOC: CHSIMG 11:07
PROVIDERS: PCP Internal Medicine; Visit Provider Internal Medicine
DX: R05.9 Cough, unspecified (principal)
CPT/HCPCS: 71046

== ENCOUNTER 2023-10-26 11:36 | Outpatient (CLI) | payer MEDICARE, MEDICAID, SELFPAY ==
--- NOTE | ~2023-10-26 | XR_ITS ---
EXAMINATION: XR chest 2V DATE: 10/26/2023 12:57 INDICATION: Chest pain. TECHNIQUE: Frontal and lateral views of the chest were obtained. COMPARISON: Chest 2 views 10/04/2023 FINDINGS: There is mild chronic scarring at the lung apices. No pleural effusion or pneumothorax. The heart is normal. There are surgical clips in the abdomen. IMPRESSION: 1. No acute cardiopulmonary disease. Reviewed, dictated and finalized at location A.
--- NOTE | ~2023-10-26 | NM_ITS ---
EXAMINATION: NM lung vent and perfusion DATE: 10/26/2023 12:57 INDICATION: Chest pain. TECHNIQUE: 33.4 mCi Tc-99m DTPA was given for ventilation images. 5.1 mCi Tc-99m MAA was administered intravenously for perfusion images. Scintigraphic images of the chest were obtained. COMPARISON: Chest 2 views 10/26/2023, chest CT 06/28/2020 FINDINGS: The ventilation and perfusion images demonstrate small defects. IMPRESSION: 1. Low probability for pulmonary embolism. Reviewed, dictated and finalized at location A.
== END 2023-10-26 11:37 | disposition home or self-care (01) ==
LOC: CHSIMG 11:47
PROVIDERS: PCP Internal Medicine; Visit Provider Internal Medicine
DX: R07.9 Chest pain, unspecified (principal); R79.89 Other specified abnormal findings of blood chemistry
CPT/HCPCS: 71046; 78582; A9540; A9558

== ENCOUNTER 2023-11-23 12:52 | Outpatient (CLI) | payer MEDICARE, MEDICAID, SELFPAY ==
[2023-11-23 13:09] LABS: Add Urine Microscopic? NO; Appearance Urine Clear (Clear); Basophils Absolute Auto 0.09 K/mm3 (0.00-0.10); Basophils Percent Auto 1.1 % (0.0-1.0); Bilirubin Urine Negative (Negative); Blood Urine Negative (Negative); Color Urine Light Yellow (Yellow); Eosinophils Absolute Auto 0.11 K/mm3 (0.02-0.50); Eosinophils Percent Auto 1.3 % (1.0-6.0); Glucose Urine UA Negative (Negative); Hemoglobin 14.4 g/dL (12.4-15.3); Immature Granulocyte Absolute 0.02 K/mm3 (0.00-0.00); Immature Granulocyte Percent A 0.2 % (0.0-0.0); Ketones Urine Negative (Negative); Leukocyte Esterase Ur Negative (Negative); Lymphocytes Absolute Auto 1.67 K/mm3 (1.10-4.50); Lymphocytes Percent Auto 20.4 % (18.0-42.0); Mean Corpuscular HGB Conc 33.5 g/dL (32-36); Mean Corpuscular Hemoglobin 29.5 pg (27.0-31.0); Mean Corpuscular Volume 88.1 fL (78.0-102.0); Mean Platelet Volume 9.8 fl (8.7-11.0); Monocytes Absolute Auto 0.61 K/mm3 (0.10-0.90); Monocytes Percent Auto 7.5 % (2.0-11.0); Neutrophils Absolute Auto 5.67 K/mm3 (1.70-7.20); Neutrophils Percent Auto 69.5 % (50.0-70.0); Nitrate Urine Negative (Negative); Platelet Count Result 206 K/mm3 (150-420); Protein Urine Negative (Negative); Red Blood Count 4.88 M/mm3 (4.70-6.10); Red Cell Distribution Width 13.5 % (11.6-14.4); Specific Grav Ur 1.025 (1.010-1.020); White Blood Count 8.2 K/mm3 (4.8-10.8)
[2023-11-23 13:19] LABS: Amphetamine Screen Urine Negative (Negative); Benzodiazepines Screen Urine Negative (Negative); Cannabinoid Screen Urine Positive (Negative); Cocaine Screen Urine Negative (Negative); Methadone Screen Urine Negative (Negative); Opiate Screen Urine Negative (Negative); Phencyclidine Screen Urine Negative (Negative)
[2023-11-23 14:15] LABS: Alanine Aminotransferase 17 U/L (16-63); Albumin Level 3.5 g/dL (3.4-5.0); Alkaline Phosphatase 114 U/L (46-116); Anion Gap 8 mmol/L (4-12); Aspartate Amino Transferase 18 U/L (15-37); Bilirubin,Total 0.3 mg/dL (0.00-1.00); Blood Urea Nitrogen 12 mg/dL (7-18); Calcium 8.4 mg/dL (8.5-10.1); Carbon Dioxide 27 mmol/L (21-32); Chloride 103 mmol/L (98-108); Estimated Glomerular Filt Rate 51; Glucose 116 mg/dL (70-99); Osmolality Calculated 286 mOsm/kg (285-295); Potassium 3.6 mmol/L (3.5-5.1); Sodium 138 mmol/L (136-145); Total Protein 6.6 g/dL (6.4-8.2)
[2023-11-23 14:17] LABS: CRP < 0.5 mg/dL (0.0-0.9)
== END 2023-11-23 12:53 | disposition home or self-care (01) ==
LOC: CHSLAB 12:55
PROVIDERS: PCP Internal Medicine; Visit Provider Internal Medicine
DX: R44.3 Hallucinations, unspecified (principal); I10 Essential (primary) hypertension
CPT/HCPCS: 36415; 80053; 80307; 81003; 85025; 86140; 87086

== ENCOUNTER 2024-06-26 09:32 | Outpatient (CLI) | payer MEDICARE, MEDICAID, SELFPAY ==
--- OUTSIDE RECORDS SUMMARY | 2024-06-26 09:42 | XMS_ITS | Encounter Summary ---
Author Organization [facility] Address [address] [place] [address] Care Team Providers Care Cell Room Supervisor Name Role Phone Joesph Hollis MD Primary Care Provider [phone] Encounter Details Date Type Department Care Team (Late st Contact Info) Description 02/23/2022 Hospital Orders Only [facility] Pre/Post [address], [place] [id number] Boaz Brito MD [address] [address] Social History Tobacco Use Types Packs/Day Years Used Date Smoking Tobacco: Every Day Cigarettes Smokeless Tobacco: Never Alcohol Use Standard Drinks/Week Comments Not Currently 0 (1 standard drink = 0.6 oz pur e alcohol) Sex and Gender Information Value Date Recorded Sex Assigned at Not on file Legal Sex Male 11:07 PM CDT Gender Identity Not on file Sexual Orientation Not on file COVID-19 Exposure Response Date Recorded In the last 10 days, have yo u been in contact with someone who was confirmed or suspected to have Coronavirus/COVID-19? No / Unsure 02/25/2022 7:39 AM PANMAN documented as of this encounter Functional Status * RETIRED Are you deaf or do you have serious difficulty hearing Answer Date of Assessment Author Status No 11/12/2020 12:35 AM CDT Acti ve * RETIRED Are you blind or do you have serious difficulty seeing, even when wearing glasses? Answer Date of Assessment Author Status No 11/12/2020 12:35 AM CDT Acti ve * Do you have serious difficulty walking or climbing stairs? Answer Date of Assessment Author Status No 11/12/2020 12:35 AM CDT Luis FernandoLani crooks RN Active * Do you have difficulty dressing or bathing? Answer Date of Assessment Author Status No 11/12/2020 12:35 AM Lani Muñoz RN Active * Because of a physical, mental, or emotional condition, do you have difficulty doing errands alone such as visiting a doctor's office or shopping? Answer Date of Assessment Author Status No 11/12/2020 12:35 AM Lani Muñoz RN Active * Calculated C-SSRS Risk Score (Lifetime/Recent) Answer Date of Assessment Author Status No Risk Indicated 02/25/2022 8:11 AM Juliana Montalvo RN Active * [place] Suicide Severity Rating Scale (Screener/Recent Self-Report) Question Answer Date of Assessment Author Status 1. Wish to be (Past 1 Month) No 02/25/2022 8:11 AM Winsome Montalvo RN Act donta 2. Non-Specific Active Suicidal Thoughts (Past 1 Month) No 02/25/2022 8:11 AM Winsome Montalvo RN Act donta 6. Suicidal Behavior (Lifetime) No 02/25/2022 8:11 AM Winsome Montalvo RN Act donta documented as of this encounter Mental Status * Because of a physical, mental, or emotional condition, do you have serious difficulty concentrating, remembering, or making decisions? Answer Entry Date Author Status No 11/12/2020 12:35 AM Lani Muñoz RN Active documented in this encounter Plan of Treatment Not on file documented as of this encounter Goals Goal Patient Goal Type Associated Problems Recent Progress Patient-Stated? Author Health - patient able to perform ADLs independently General On track( 021 3:57 PM CDT) No Parker Burton RN documented as of this encounter Visit Diagnoses Not on filedocumented in this encounter Care Teams Cell Room Supervisor Relationship Specialty Start Date End Date Joesph Hollis MD [address] [place] [address] PCP - General INTERNAL MEDICINE 05/28/19 documented as of this encounter
--- OUTSIDE RECORDS SUMMARY | 2024-06-26 09:42 | XMS_ITS | Clinical Summary ---
Author Organization [facility] Address [address] [place] [address] Care Team Providers Care Construction Project Engineer Name Role Phone Joesph Hollis MD Primary Care Provider [phone] Allergies No known active allergies Medications gabapentin 300 MG capsule Take 1 capsule (300 mg total) by mouth 3 (three) times daily. 90 capsule 06/06/2019 Active NIFEdipine XL 60 MG 24 hr tablet Take 1 tablet (60 mg total) by mouth daily. 30 tablet 1 07/05/2020 Active amitriptyline 25 MG tablet Take 25 mg by mouth nightly at bedtime. at bedtime. 08/10/2020 Active prochlorperazin e 5 MG tablet Take 5 mg by mouth every 6 (six) hours as needed. 07/14/2020 Active Melatonin 10 MG Tab Take 10 mg by mouth nightly as needed. Active atorvastatin 40 MG tablet Take 1 tablet (40 mg total) by mouth nightly at bedtime. 30 tablet 2 11/13/2020 Active omeprazole 40 MG capsule Take 40 mg by mouth daily. 10/29/2020 Active diclofenac EC 75 MG tablet Take 75 mg by mouth as needed. Active levETIRAcetam (KEPPRA) 500 MG tablet Take 500 mg by mouth 2 (two) times daily. Active aspirin EC 81 MG tablet Take 81 mg by mouth daily. Active escitalopram (LEXAPRO) 5 MG tablet Take 5 mg by mouth daily. Active montelukast (SINGULAIR) 10 MG tablet Take 10 mg by mouth nightly at bedtime. Active Active Problems Problem Noted Date Diagnosed Date Seizure (CMS/HCC [facility]) 11/11/2020 Esophagitis 07/01/2020 Lactic acidosis 06/29/2020 Cellulitis 05/29/2019 AVM (arteriovenous malformation) ([facility]) Stroke (cerebrum) ([facility]) Immunizations Immunization Administration Dates Next Due Pneumococcal (Pneumovax 23) 06/01/2019 Family History Medical History Relation Comments congenital heart disease Brother 1 Heart Attack Mother OK Mother Relation Status Comments Brother 1 Brother 2 Brother 3 Alive Brother 4 Alive Father medical history unknown Mother Sister 1 Alive Sister 2 Alive Social History Tobacco Use Types Packs/Day Years Used Date Smoking Tobacco: Every Day Cigarettes Smokeless Tobacco: Never Alcohol Use Standard Drinks/Week Comments Not Currently 0 (1 standard drink = 0.6 oz pur e alcohol) Sex and Gender Information Value Date Recorded Sex Assigned at Not on file Legal Sex Male 11:07 PM CDT Gender Identity Not on file Sexual Orientation Not on file Last Filed Vital Signs Vital Sign Reading Time Taken Comments Blood Pressure 145/89 02/25/2022 8:09 AM SHIRT IRONER SUPERVISOR 139 /93 Pulse 62 02/25/2022 8:09 AM SHIRT IRONER SUPERVISOR Temperature 36.6 C (97.8 F) 02/25/2022 8:09 AM SHIRT IRONER SUPERVISOR Respiratory Rate 18 02/25/2022 8:09 AM SHIRT IRONER SUPERVISOR Oxygen Saturation 97% 02/25/2022 8:09 AM SHIRT IRONER SUPERVISOR Inhaled Oxygen Concentration - - Weight 85 kg (187 lb 6.3 oz) 02/25/2022 8:09 AM SHIRT IRONER SUPERVISOR Height 183 cm (6' 0.05 ) 02/25/2022 8:09 AM SHIRT IRONER SUPERVISOR Body Mass Index 25.38 02/25/2022 8:09 AM SHIRT IRONER SUPERVISOR Plan of Treatment Health Maintenance Due Date Last Done Comments Colorectal Cancer Screening Colonoscopy (10 Years) 1960 Hepatitis C 01/22/1976 DTaP, Tdap and Td Vaccines ( 1 - Tdap) 1977 Zoster Vaccines (1 of 2) 01/22/2008 RSV Immunization or 60+ Years (1 - Risk 60-74 years 1-dose series) 2018 Pneumococcal Vaccine: 50+ Ye ars (2 of 2 - PCV) 05/31/2020 06/01/2019 Annual Medicare Wellness Visit 2023 COVID-19 Vaccine (2 - 2023-2 5 season) 2023 06/16/2020 Meningococcal B Vaccine Aged Out No l onger eligible based on patient's age to complete this topic Meningococcal Vaccine Aged Out No chris sedrick eligible based on patient's age to complete this topic RSV Immunizations Under 20 Months Aged Out No longer eligible based on patient's age to complete this topic Goals Goal Patient Goal Type Associated Problems Recent Progress Patient-Stated? Author Health - patient able to perform ADLs independently General On track( 021 3:57 PM CDT) Parker Nur RN Insurance MEDICAID [employer] Advance Directives * Full Code (Latest Code Status on File) Date Activated Date Inactivated Comments 02/25/2022 11:11 AM 02/25/2022 2:18 PM * Full Code Date Activated Date Inactivated Comments 11/12/2020 1:30 AM 11/13/2020 11:43 AM * Full Code Date Activated Date Inactivated Comments 06/29/2020 1:33 AM 07/04/2020 2:33 PM * Full Code Date Activated Date Inactivated Comments 05/29/2019 1:48 AM 06/06/2019 4:51 PM Care Teams Construction Project Engineer Relationship Specialty Start Date End Date Joesph Hollis MD [address] [place] [id number] PCP - General INTERNAL MEDICINE 05/28/19
--- OUTSIDE RECORDS SUMMARY | 2024-06-26 09:42 | XMS_ITS | Encounter Summary ---
Author Organization [facility] Address [address] [place] [address] Care Team Providers Care Homebound Teacher Name Role Phone Joesph Hollis MD Primary Care Provider [phone] Encounter Details Date Type Department Care Team (Late st Contact Info) Description 09/07/2020 Pre-Procedure Call [facility] Lab Pre/Post [address] [place], [place] [id number] Boaz Brito MD [address] [address] Social History Tobacco Use Types [...] Exposure Response Date Recorded In the last month, have you been in contact with someone who was confirmed or suspected to have Coronavirus / COVID-19? No / Unsure 09/01/2020 6:31 AM CDT documented as of this encounter Functional Status * RETIRED Are you deaf or do you have serious difficulty hearing Answer Date of Assessment Author Status No 06/29/2020 12:51 AM CDT Acti ve * RETIRED Are you blind or do you have serious difficulty seeing, even when wearing glasses? Answer Date of Assessment Author Status No 06/29/2020 12:51 AM CDT Acti ve * Do you have serious difficulty walking or climbing stairs? Answer Date of Assessment Author Status No 06/29/2020 12:51 AM CDT Carlos Keen RN Active * Do you have difficulty dressing or bathing? Answer Date of Assessment Author Status No 06/29/2020 12:51 AM CDT Carlos Keen RN Active * Because of a physical, mental, or emotional condition, do you have difficulty doing errands alone such as visiting a doctor's office or shopping? Answer Date of Assessment Author Status No 06/29/2020 12:51 AM JENELLET Carlos Keen RN Active documented as of this encounter Mental Status * Because of a physical, mental, or emotional condition, do you have serious difficulty concentrating, remembering, or making decisions? Answer Entry Date Author Status No 06/29/2020 12:51 AM JENELLET Carlos Keen RN Active documented in this encounter Plan of Treatment Not on file documented as of this encounter Goals Goal Patient Goal Type Associated Problems Recent Progress Patient-Stated? Author Health - patient able to perform ADLs independently General On track( 021 3:57 PM CDT) No Parker Burton RN documented as of this encounter Visit Diagnoses Not on filedocumented in this encounter Additional Health Concerns Infection Onset Date Last Indicated Resolved Time COVID-19 Rule Out 11/12/2020 11/12/2020 11/12/2020 1:53 AM CDT COVID-19 Rule Out 11/12/2020 11/12/2020 11/13/2020 2:14 AM CDT documented as of this encounter Care Teams Homebound Teacher Relationship Specialty Start Date End Date Joesph Hollis MD [address] [place] [address] PCP - General INTERNAL MEDICINE 05/28/19 documented as of this encounter
--- OUTSIDE RECORDS SUMMARY | 2024-06-26 09:42 | XMS_ITS | Encounter Summary ---
Author Organization [facility] Address [address] [place] [address] Care Team Providers Care Enrollment Management Coordinator Name Role Phone Joesph Hollis MD Primary Care Provider [phone] Encounter Details Date Type Department Care Team (Late st Contact Info) Description 11/24/2020 Abstract [facility] [address] [place] [id number] Singh Ritter MD [address] [place] [address] Social History Tobacco Use Types Packs/Day Years Used Date Smoking Tobacco: Every Day Cigarettes Smokeless Tobacco: Never Alcohol Use Standard Drinks/Week Comments Not Currently 0 (1 standard drink = 0.6 oz pur e alcohol) Sex and Gender Information Value Date Recorded Sex Assigned at Not on file Legal Sex Male 11:07 PM CDT Gender Identity Not on file Sexual Orientation Not on file documented as of this encounter Functional Status [...] Author Status No 11/12/2020 12:35 AM CDT Lani Gould RN Active * Do you have difficulty dressing or bathing? Answer Date of Assessment Author Status No 11/12/2020 12:35 AM JENELLET Lani Gould RN Active * Because of a physical, mental, or emotional condition, do you have difficulty doing errands alone such as visiting a doctor's office or shopping? Answer Date of Assessment Author Status No 11/12/2020 12:35 AM CDT Lani Gould RN Active documented as of this encounter Mental Status * Because of a physical, mental, or emotional condition, do you have serious difficulty concentrating, remembering, or making decisions? Answer Entry Date Author Status No 11/12/2020 12:35 AM JENELLET Lani Gould RN Active documented in this encounter Plan of Treatment Not on file documented as of this encounter Goals Goal Patient Goal Type Associated Problems Recent Progress Patient-Stated? Author Health - patient able to perform ADLs independently General On track( 021 3:57 PM CDT) No Parker Burton RN documented as of this encounter Visit Diagnoses Not on filedocumented in this encounter Care Teams Enrollment Management Coordinator Relationship Specialty Start Date End Date Joesph Hollis MD [address] [place] [address] PCP - General INTERNAL MEDICINE 05/28/19 documented as of this encounter
[2024-06-26 10:43] LABS: Add Urine Microscopic? NO; Appearance Urine Clear (Clear); Bilirubin Urine Negative (Negative); Blood Urine Negative (Negative); Color Urine Yellow (Yellow); Glucose Urine UA Negative (Negative); Ketones Urine Negative (Negative); Leukocyte Esterase Ur Negative (Negative); Nitrate Urine Negative (Negative); Protein Urine Negative (Negative)
[2024-06-26 10:44] LABS: Basophils Absolute Auto 0.12 K/mm3 (0.00-0.10); Basophils Percent Auto 1.4 % (0.0-1.0); Eosinophils Absolute Auto 0.19 K/mm3 (0.02-0.50); Eosinophils Percent Auto 2.3 % (1.0-6.0); Hemoglobin 15.3 g/dL (12.4-15.3); Immature Granulocyte Absolute 0.03 K/mm3 (0.00-0.00); Immature Granulocyte Percent A 0.4 % (0.0-0.0); Lymphocytes Absolute Auto 1.94 K/mm3 (1.10-4.50); Lymphocytes Percent Auto 23.3 % (18.0-42.0); Mean Corpuscular HGB Conc 31.9 g/dL (32-36); Mean Corpuscular Hemoglobin 28.4 pg (27.0-31.0); Mean Corpuscular Volume 89.1 fL (78.0-102.0); Mean Platelet Volume 10.3 fl (8.7-11.0); Monocytes Absolute Auto 0.62 K/mm3 (0.10-0.90); Monocytes Percent Auto 7.5 % (2.0-11.0); Neutrophils Absolute Auto 5.41 K/mm3 (1.70-7.20); Neutrophils Percent Auto 65.1 % (50.0-70.0); Platelet Count Result 234 K/mm3 (150-420); Red Blood Count 5.39 M/mm3 (4.70-6.10); Red Cell Distribution Width 14.9 % (11.6-14.4); White Blood Count 8.3 K/mm3 (4.8-10.8)
[2024-06-26 11:13] LABS: Alanine Aminotransferase 14 U/L (6-50); Albumin Level 4.2 g/dL (3.5-5.1); Alkaline Phosphatase 99 U/L (38-126); Anion Gap 6 mmol/L (4-12); Aspartate Amino Transferase 25 U/L (17-59); Bilirubin,Total 0.6 mg/dL (0.2-1.3); Blood Urea Nitrogen 12 mg/dL (9-20); Calcium 8.6 mg/dL (8.4-10.2); Carbon Dioxide 26 mmol/L (22-30); Chloride 108 mmol/L (98-107); Cholesterol 117 mg/dL (0-200); Estimated Glomerular Filt Rate 55; Glucose 83 mg/dL (65-110); HDL Direct 43 mg/dL; LDL Cholesterol Calculated 53 mg/dL (<130); Osmolality Calculated 288 mOsm/kg (285-295); Potassium 3.9 mmol/L (3.4-5.0); Sodium 140 mmol/L (137-145); Total Protein 6.6 g/dL (6.3-8.2); Triglycerides 104 mg/dL (<150)
[2024-06-26 11:44] LABS: Prostate Specific Antigen 1.8 ng/mL (< OR = 4.0)
== END 2024-06-26 09:33 | disposition home or self-care (01) ==
PROVIDERS: PCP Internal Medicine; Visit Provider Internal Medicine
DX: I10 Essential (primary) hypertension (principal); E78.5 Hyperlipidemia, unspecified; Z12.5 Encounter for screening for malignant neoplasm of prostate
CPT/HCPCS: 36415; 80053; 80061; 81003; 84153; 84443; 85025; 94060; 94726; 94729; G0103

== ENCOUNTER 2024-08-09 12:14 | Outpatient (CLI) | payer MEDICARE, SELFPAY ==
--- NOTE | ~2024-08-09 | XR_ITS ---
EXAM/PROCEDURE: XR chest 2V - 08/09/2024 12:20 CDT HISTORY: 64 years old Male with Dyspnea x2 months/ Pre-OP TECHNIQUE: Two view(s) of the chest. COMPARISON: None available. FINDINGS: LUNGS/ PLEURA: No focal consolidation. No appreciable pneumothorax or large pleural effusion. HEART/ MEDIASTINUM: Heart appears normal in size. BONES: No acute osseous abnormality. OTHER: Visualized upper abdomen is unremarkable. IMPRESSION: No acute process. Reviewed, dictated and finalized at location A. IMPRESSION: No acute process.
--- NOTE | 2024-08-09 12:27 | ECG_ITS ---
Test Date: 2024-08-09 12:34:08 Measurements Intervals [place] Rate: 60 P: 67 MA: 157 QRS: 58 QRSD: 106 T: -2 QT: 450 QTc: 453 Interpretive Statements SINUS RHYTHM WITH OCCASIONAL VENTRICULAR PREMATURE COMPLEXES INCOMPLETE RIGHT BUNDLE BRANCH BLOCK MINIMAL Q WAVES- INFERIOR LEADS BORDERLINE ST-T WAVE ABNORMALITY- INFERIOR LEADS BORDERLINE ECG No previous ECG available for comparison Electronically Signed On 08-09-2024 12:57:12 CDT by Brian Penn D.O.
== END 2024-08-09 12:15 | disposition home or self-care (01) ==
LOC: CHSIMG 12:16
PROVIDERS: PCP Internal Medicine; Visit Provider Internal Medicine
DX: R06.00 Dyspnea, unspecified (principal); I45.19 Other right bundle-branch block
CPT/HCPCS: 71046; 93005

== ENCOUNTER 2024-08-19 11:08 | Outpatient (CLI) | payer MEDICARE, MEDICAID, SELFPAY ==
--- OUTSIDE RECORDS SUMMARY | 2024-08-19 11:23 | XMS_ITS | Encounter Summary ---
Author Organization [facility] Address [address] [place] [address] Care Team Providers Care Food Packer Name Role Phone Joesph Hollis MD Primary Care Provider [phone] Encounter Details Date Type Department Care Team (Late st Contact Info) Description 09/07/2020 Pre-Procedure Call [facility] Lab Pre/Post [address] [place], [place] [phone] Boaz Brito MD [address] [address] Social History Tobacco Use Types [...] documented as of this encounter Care Teams Food Packer Relationship Specialty Start Date End Date Joesph Hollis MD [address] [place] [address] PCP - General INTERNAL MEDICINE 05/28/19 documented as of this encounter
--- OUTSIDE RECORDS SUMMARY | 2024-08-19 11:23 | XMS_ITS | Encounter Summary ---
Author Organization [facility] Address [address] [place] [address] Care Team Providers Care World Geography Teacher Name Role Phone Joesph Hollis MD Primary Care Provider [phone] Encounter Details Date Type Department Care Team (Late st Contact Info) Description 11/24/2020 Abstract [facility] [address] [place] [phone] Singh Ritter MD [address] [place] [address] Social History Tobacco Use Types [...] on filedocumented in this encounter Care Teams World Geography Teacher Relationship Specialty Start Date End Date Joesph Hollis MD [address] [place] [address] PCP - General INTERNAL MEDICINE 05/28/19 documented as of this encounter
--- OUTSIDE RECORDS SUMMARY | 2024-08-19 11:23 | XMS_ITS | Encounter Summary ---
Author Organization [facility] Address [address] [place] [address] Care Team Providers Care Corrections Nurse Name Role Phone Joesph Hollis MD Primary Care Provider Encounter Details Date Type Department Care Team (Late st Contact Info) Description 02/23/[address] [facility] Lab Pre/Post [address] [place], [place] [phone] Boaz Brito MD [address] [address] Social History Tobacco Use Types [...] Coronavirus/COVID-19? No / Unsure 02/25/2022 7:39 AM CUSTOMER CONTACT SPECIALIST documented as of this encounter Functional Status [...] 8:11 AM Juliana Montalvo RN Active * [place] Suicide Severity Rating Scale (Screener/Recent Self-Report) Question [...] on filedocumented in this encounter Care Teams Corrections Nurse Relationship Specialty Start Date End Date Joesph Hollis MD [address] [place] [address] PCP - General INTERNAL MEDICINE 05/28/19 documented as of this encounter
--- OUTSIDE RECORDS SUMMARY | 2024-08-19 11:23 | XMS_ITS | Clinical Summary ---
Author Organization [facility] Address [address] [place] [address] Care Team Providers Care Cash Analyst Name Role Phone Joesph Hollis MD Primary Care Provider [phone] Allergies No known active allergies Medications gabapentin [...] Problem Noted Date Diagnosed Date Seizure (CMS/HCC [facility]) 11/11/2020 Esophagitis 07/01/2020 Lactic acidosis 06/29/2020 Cellulitis 05/29/2019 AVM (arteriovenous malformation) ([facility]) Stroke (cerebrum) ([facility]) Immunizations Immunization Administration Dates Next Due Pneumococcal (Pneumovax 23) 06/01/2019 Family History Medical History Relation Comments congenital heart disease Brother 1 Heart Attack Mother NH Mother Relation Status Comments Brother 1 Brother [...] Comments Blood Pressure 145/89 02/25/2022 8:09 AM RESEARCH STAFF MEMBER 139 /93 Pulse 62 02/25/2022 8:09 AM RESEARCH STAFF MEMBER Temperature 36.6 C (97.8 F) 02/25/2022 8:09 AM RESEARCH STAFF MEMBER Respiratory Rate 18 02/25/2022 8:09 AM RESEARCH STAFF MEMBER Oxygen Saturation 97% 02/25/2022 8:09 AM RESEARCH STAFF MEMBER Inhaled Oxygen Concentration - - Weight 85 kg (187 lb 6.3 oz) 02/25/2022 8:09 AM RESEARCH STAFF MEMBER Height 183 cm (6' 0.05) 02/25/2022 8:09 AM RESEARCH STAFF MEMBER Body Mass Index 25.38 02/25/2022 8:09 AM RESEARCH STAFF MEMBER Plan of Treatment Health Maintenance Due Date [...] 1:48 AM 06/06/2019 4:51 PM Care Teams Cash Analyst Relationship Specialty Start Date End Date Joesph Hollis MD [address] [place] [phone] PCP - General INTERNAL MEDICINE 05/28/19
== END 2024-08-19 11:09 | disposition home or self-care (01) ==
PROVIDERS: PCP Internal Medicine; Visit Provider Anesthesiology
DX: K43.0 Incisional hernia with obstruction, without gangrene (principal)
CPT/HCPCS: 36415; 86850; 86900; 86901

== ENCOUNTER 2024-10-22 14:45 | Outpatient (CLI) | payer MEDICARE, MEDICAID, SELFPAY ==
--- NOTE | ~2024-10-22 | XR_ITS ---
Cervical spine Indication: NECK AND SHOULDER PAIN Technique: 3 AP, lateral and dens views obtained. Findings: Moderate osteopenia. Moderate loss of vertical height throughout. No fracture or subluxation. Severe loss of disc height C4-5 C5-6 and C6-7. IMPRESSION: Severe degenerative changes Reviewed, dictated and finalized at location A. IMPRESSION: Severe degenerative changes
--- NOTE | ~2024-10-22 | XR_ITS ---
EXAMINATION: XR shoulder RT min 2V, 10/22/2024 15:00 CDT HISTORY: NECK AND SHOULDER PAIN COMPARISON: No comparisons available. Findings: Postsurgical changes noted with fixation of the mid humerus, no acute fracture or dislocation identified. Moderate degenerative changes. Soft tissues unremarkable. Impression: No acute fracture or malalignment. Reviewed, dictated and finalized at location A. Impression: No acute fracture or malalignment.
[2024-10-22 15:12] LABS: Hematocrit 44.6 % (37.0-46.0); Hemoglobin 14.5 g/dL (12.4-15.3); Mean Corpuscular HGB Conc 32.5 g/dL (32-36); Mean Corpuscular Hemoglobin 29.4 pg (27.0-31.0); Mean Corpuscular Volume 90.5 fL (78.0-102.0); Platelet Count Result 246 K/mm3 (150-420); Red Blood Count 4.93 M/mm3 (4.70-6.10); White Blood Count 7.7 K/mm3 (4.8-10.8)
[2024-10-22 15:26] LABS: Alanine Aminotransferase 24 U/L (6-50); Albumin Level 4.4 g/dL (3.5-5.1); Alkaline Phosphatase 85 U/L (38-126); Anion Gap 10 mmol/L (4-12); Aspartate Amino Transferase 32 U/L (17-59); Bilirubin,Total 0.4 mg/dL (0.2-1.3); Blood Urea Nitrogen 14 mg/dL (9-20); CRP < 0.5 mg/dL (<1.0); Calcium 9.2 mg/dL (8.4-10.2); Carbon Dioxide 25 mmol/L (22-30); Chloride 107 mmol/L (98-107); Estimated Glomerular Filt Rate > 60; Osmolality Calculated 292 mOsm/kg (285-295); Potassium 4.3 mmol/L (3.4-5.0); Sodium 142 mmol/L (137-145); Total Protein 6.8 g/dL (6.3-8.2)
[2024-10-22 15:43] LABS: Glucose 58 mg/dL (65-110)
[2024-10-24 07:09] LABS: LH 6.0 mIU/mL (1.7-8.6)
[2024-10-30 22:07] LABS: Free Testosterone (Direct) 8.7 pg/mL (6.6-18.1)
== END 2024-10-22 14:46 | disposition home or self-care (01) ==
LOC: CHSLAB 14:49
PROVIDERS: PCP Internal Medicine; Visit Provider Internal Medicine
DX: I10 Essential (primary) hypertension (principal); E29.1 Testicular hypofunction; M54.2 Cervicalgia; M25.511 Pain in right shoulder
CPT/HCPCS: 36415; 72040; 73030; 80053; 83002; 84402; 84403; 85027; 86140

== ENCOUNTER 2024-10-24 16:25 | Outpatient (RCR) | payer MEDICARE, MEDICAID, SELFPAY ==
--- NOTE | 2024-10-24 17:52 | OPREHPOC ---
Outpatient Therapy Plan of Care This is a Multidisciplinary Plan of Care that may contain components documented by all disciplines (PT, OT, and ST.) PT Problem 1 PT Problem #1 Knowledge Deficit PT Goal 1 Goal / Goal Update Independent and compliant with HEP. Target Visit 2 PT Problem 2 PT Problem #2 Impaired Strength PT Goal 1 Goal / Goal Update Pt to improve R shoulder strength to 3/5. Target Visit 8 PT Problem 3 PT Problem #3 Impaired Range of Motion PT Goal 1 Goal / Goal Update Pt to improve R shoulder flexion and abduction AROM to 90 deg. Pt to improve R shoulder functional ER to occiput. Target Visit 8 PT Problem 4 PT Problem #4 Impaired Functional Mobility PT Goal 1 Goal / Goal Update Pt to report improved sleep quality and waking up less frequently due to R shoulder pain. Pt to report being able to wash his hair and brush his teeth using his R arm. Target Visit 8
--- NOTE | 2024-10-24 17:53 | PTOPEVAL1 ---
Assessment and note entered by Christy Seay, PT Evaluation Information Assessment Status Evaluation ICD-10 Condition Codes (PT) Pain in right shoulder M25.511 Onset 10/03/2024 Subjective Information Pt reports his R shoulder pain started 3 weeks ago when he was shoveling dirt. He reports the pain is aching and numb and radiates down to his hand. He reports it hurts to lie on that side and the pain wakes him up frequently at night. He saw the doctor for his shoulder pain and they prescribed him a steroid. He reports he also had an x-ray of the neck and R shoulder. He reports he can't raise his arm using his other arm to help and that he experiences extreme difficulty with getting dressed, performing hygiene tasks and reaching into cabinets. He also hasn't been able to do any outdoor work around the house and that his told him to rest the arm. He has a TENS unit at home but states they just moved so he isn't sure where it is. Reported Pain Level Pain Score 4: Self Report Assessment PT Clinical Summary Mr. Livingston is a 64 yo male presenting to skilled PT evaluation with R shoulder pain that began 3 weeks ago after shoveling dirt. Despite his relatively low Quick DASH score, Mr. Livingston demonstrates severely limited R shoulder AROM, PROM and strength along with severe functional limitations due to pain. He is R hand dominant and is unable to perform any cooking/cleaning activities at home due to inability to lift his arm and also experiences difficulty getting dressed and performing hygiene tasks due to pain. He experiences significant sleep interruption due to pain with lying on the R shoulder. He also demonstrates tenderness to palpation to the infra and supraspinatus mm bellies and tendon insertions along with painful arc, positive infraspinatus and drop arm testing, indicating likely partial and/or full rotator cuff tear of these muscles. He would benefit from skilled PT intervention to address these deficits to improve ROM, strength and functional use of the R shoulder but would also benefit from additional imaging and referral to strategic marketing specialist for further testing. Plan of Care Interventions Electrical Stimulation,Gait Training,Hot Pack/Cold Pack,Manual Therapy,Neuro Re-education,Patient/ Caregiver Education,Therapeutic Activities, Therapeutic Exercise,Self-Care/Home Management PT Services Indicated Yes Treatment Frequency and 2x/week for 8 visits and recommend referrral to Duration ortho These treatments will address the objective and functional deficits as defined above. The patient will be advanced safely and appropriately in order for the patient to progress towards his/her prior level of function. Additional exercises will be introduced and as well as a comprehensive home exercise program upon discharge, if needed, ?to ensure carryover of functional gains achieved in the clinic. This treatment plan has been reviewed and agreement upon by the patient.
== END 2024-10-29 20:00 | disposition home or self-care (01) ==
LOC: CHSPT 16:25
PROVIDERS: PCP Internal Medicine; Visit Provider Internal Medicine
DX: M25.511 Pain in right shoulder (principal)
CPT/HCPCS: 97014; 97110; 97162; G0283

== ENCOUNTER 2024-11-16 07:27 | Outpatient (CLI) | payer MEDICARE, MEDICAID, SELFPAY ==
--- NOTE | ~2024-11-16 | MR_ITS ---
EXAMINATION: MR shoulder RT wo con DATE: 11/16/2024 08:14 INDICATION: Right shoulder injury with pain radiating from the neck to the right shoulder and elbow TECHNIQUE: Magnetic resonance imaging (MRI) of the right shoulder was performed without intravenous contrast. Sequences included axial PD-weighted FS FSE, coronal oblique PD-weighted FS FSE, coronal oblique T2-weighted FS FSE, sagittal PD-weighted FS FSE, and sagittal T1-weighted SE. COMPARISON: Right shoulder radiographs dated 10/22/24 FINDINGS: Coracoacromial arch: The acromion undersurface is minimally curved in morphology (type I-II). The coracoacromial ligament is normal. Severe acromioclavicular osteoarthritis with small inferiorly directed osteophytes which remains separate from the underlying supraspinatus tendon by a thin intervening fat plane. Rotator cuff: Moderate supraspinatus and severe infraspinatus tendinopathy. There is a large full-thickness tear involving the majority the supraspinatus and infraspinatus tendons. A small portion of the attenuated supraspinatus tendon remains intact. The 2 most superior facet footplate. There is also with a minimal amount of frayed appearing infraspinatus tendon material extending to the posterior most middle facet footplate which is of doubtful functional integrity. There appears be some residual frayed tendon material along the greater tuberosity. The supraspinatus tear margin is retracted up to 5 cm medial to the footplate slightly medial to the level of the rim of the glenoid. The teres minor tendon is normal. Mild subscapularis tendinopathy without discrete tear. There is medial retraction mild fatty atrophy of the supraspinatus and infraspinatus muscle bellies. Biceps tendon, glenoid labrum and glenohumeral cartilage: Long head biceps tendon is not visualized and likely torn and retracted below the inferior margin of the field of imaging. There is a small tear at the chondral labral junction of the posterior superior glenoid labrum at the 10:00 position. There is an additional tear at the superior glenoid labrum. There is focal chondral ulceration with partial-thickness cartilage loss and chondral surface regularity at the superomedial aspect of the humeral head. Mild partial- thickness cartilage loss with smooth chondral surface at the central and superior aspect of the glenoid. Fluid: Moderate-sized glenohumeral joint effusion which extends through the full- thickness rotator cuff tear to communicate with additional moderate amount fluid in the subacromial/subdeltoid and subcoracoid bursae. No loose osteochondral bodies. Bones: There is superior subluxation of the humeral head with respect to the glenoid and narrowing of the subacromial space resulting from the full-thickness rotator cuff tear. The cartilage of the humeral head appears to abut the undersurface of the acromion. Moderate cystic change along the greater tuberosity likely related to chronic rotator cuff disease. No fracture or pathologic marrow replacing process. IMPRESSION: 1. Moderate rotator cuff tendinopathy with large full-thickness tear involving almost the entire supraspinatus and infraspinatus tendons. 2. Mild glenohumeral osteoarthritis with tear of the superior glenoid labrum and small tear at the chondral labral interface at the 10:00 position of the posterior superior glenoid. 3. Complete tear and distal retraction of the long head biceps tendon. 4. Severe acromioclavicular osteoarthritis. 5. Moderate right glenohumeral joint effusion with which extends through the rotator cuff tear into the subacromial/subdeltoid and subcoracoid bursa. Reviewed, dictated and finalized at location A. IMPRESSION: 1. Moderate rotator cuff tendinopathy with large full-thickness tear involving almost the entire supraspinatus and infraspinatus tendons. 2. Mild glenohumeral osteoarthritis with tear of the superior glenoid labrum an d small tear at the chondral labral interface at the 10:00 position of the post erior superior glenoid. 3. Complete tear and distal retraction of the long head biceps tendon. 4. Severe acromioclavicular osteoarthritis. 5. Moderate right glenohumeral joint effusion with which extends through the ro tator cuff tear into the subacromial/subdeltoid and subcoracoid bursa.
== END 2024-11-16 07:28 | disposition home or self-care (01) ==
LOC: CHSIMG 07:28
PROVIDERS: PCP Internal Medicine; Visit Provider Internal Medicine
DX: M25.511 Pain in right shoulder (principal); M67.813 Other specified disorders of tendon, right shoulder; M19.011 Primary osteoarthritis, right shoulder; S43.431A Superior glenoid labrum lesion of right shoulder, initial encounter; M25.411 Effusion, right shoulder
CPT/HCPCS: 73221

== ENCOUNTER 2024-12-30 08:05 | Outpatient (RCR) | payer MEDICARE, MEDICAID, SELFPAY ==
--- NOTE | 2024-12-30 08:54 | OPREHPOC ---
Outpatient Therapy Plan of Care This is a Multidisciplinary Plan of Care that may contain components documented by all disciplines (PT, OT, and ST.) PT Problem 1 PT Problem #1 Knowledge Deficit PT Goal 1 Goal / Goal Update Independent and compliant with HEP. Target Visit 2 PT Problem 2 PT Problem #2 Pain PT Goal 1 Goal / Goal Update Pt to report no worse than 4/10 R shoulder pain. Target Visit 6 PT Problem 3 PT Problem #3 Impaired Strength PT Goal 1 Goal / Goal Update Pt to improve R shoulder flexion, abduction and ER to 3+/5. Pt to improve R shoulder IR to 5/5. Target Visit 6 PT Problem 4 PT Problem #4 Impaired Range of Motion PT Goal 1 Goal / Goal Update Pt to improve active R shoulder abduction to 60 deg. Pt to improve active R shoulder flexion to 40 deg. Target Visit 6 PT Problem 5 PT Problem #5 Impaired Functional Mobility PT Goal 1 Goal / Goal Update Pt to report improved ability to reach over his head and behind his back to perform hygiene activities with his dominant arm. Target Visit 6
--- NOTE | 2024-12-30 08:54 | PTOPEVAL1 ---
Assessment and note entered by Christy Seay, PT Evaluation Information Assessment Status Evaluation ICD-10 Condition Codes (PT) Pain in right shoulder M25.511 Other ICD-10 Condition Codes ( M75.121 Complete rotator cuff tear or rupture of PT) right shoulder Onset 08/13/24 Subjective Information Pt was seen in clinic on Oct 24 for R shoulder pain after hurting his shoulder from shoveling dirt. He ended up going back to see the doctor and he was found to have a fully torn rotator cuff. Pt states the doctor told him that his shoulder cannot be surgically fixed at this point. Pt reports significant sleep interference and states he couldn't sleep at all last night. He states he either lies on his back or his L side. He states he can't raise his R arm very high but that he is able to eat using his R arm. He states he is R hand dominant and has to use his L arm to move the R one. He states he has a TENS machine at home that he uses at least once a day and he has also been taking pain relieving meds. Reported Pain Level Pain Score 6: Self Report Assessment PT Clinical Summary Mr. Livingston is a 64 yo male presenting to skilled PT with evidence of complete rotator cuff tear of the R shoulder and pt is not a candidate for surgery. He is R hand dominant and demonstrates significant deficits in his R shoulder AROM and strength that interferes with his ability to perform functional activities and ADLs such as hygiene, dressing and lifting. He also demonstrates pain in the neck that is likely due to compensatory scapular elevation when attempting to move the arm and associated postural impairments due to R shoulder pain. He will benefit from skilled PT intervention addressing these deficits to allow him to perform daily functional tasks with less pain. Plan of Care Interventions Electrical Stimulation,Gait Training,Hot Pack/Cold Pack,Manual Therapy,Neuro Re-education,Patient/ Caregiver Education,Therapeutic Activities, Therapeutic Exercise,Self-Care/Home Management PT Services Indicated Yes Treatment Frequency and 2x/week for 6 visits Duration These treatments will address the objective and functional deficits as defined above. The patient will be advanced safely and appropriately in order for the patient to progress towards his/her prior level of function. Additional exercises will be introduced and as well as a comprehensive home exercise program upon discharge, if needed, ?to ensure carryover of functional gains achieved in the clinic. This treatment plan has been reviewed and agreement upon by the patient.
--- NOTE | 2025-01-07 10:34 | PCPTNOTE ---
No call, no show.
== END 2025-01-03 20:00 | disposition home or self-care (01) ==
LOC: CHSPT 08:05
PROVIDERS: PCP Internal Medicine; Visit Provider Internal Medicine
DX: M75.121 Complete rotator cuff tear or rupture of right shoulder, not specified as traumatic (principal)
CPT/HCPCS: 97014; 97110; 97112; 97161; G0283